=== PATIENT | male | born 1980 | race Caucasian/White ===

== ENCOUNTER 2021-11-01 17:02 | Emergency (ER) | payer MEDICAID, SELFPAY ==
--- NOTE | 2021-11-01 17:26 | ED.HA ---
HPI - Headache General Chief Complaint: Psychiatric Symptoms Stated Complaint: head pain Time Seen by Provider: 11/01/21 17:26 Source: patient Mode of arrival: ambulatory Limitations: no limitations History of Present Illness HPI Narrative: Patient is a 40 year old male presenting to the emergency department today with suicidal ideation. Patient states that he was originally having a headache but he also has thoughts of killing himself. Patient states that he has a history of attempting to hang himself. Patient states that he is hearing voices in his head telling him to hurt himself. Patient denies any dizziness, lightheadedness, abdominal pain, nausea, vomiting, fever, chills, blurry vision, double vision, loss of vision, chest pain, difficulty breathing, shortness of breath, back pain, night sweats, pain with urination, increased urinary frequency, increased urinary urgency, blood in his urine or stool, syncope or a near syncopal episode, recent trauma or falls, bowel incontinence, bladder incontinence, bowel retention, bladder retention, or any other complaints at this time. Patient states that he has a history of IV drug use, using 10-15 bags of heroin per day. Related Data Allergies Allergy/AdvReac Type Severity Reaction Status Date / Time No Known Allergies Allergy Unverified 06/03/20 19:42 [No Known Allergies*] Review of Systems Constitutional: Constitutional: Reports no additional constitutional complaints, Denies chills, Denies fever(s) and Denies night sweats Eyes: Eyes: Reports no additional eye complaints, Denies blurry vision, Denies change in vision, Denies diplopia, Denies eye discharge, Denies loss of vision and Denies eye pain ENT: Denies dizziness Cardiovascular: Cardiovascular: Reports no additional cardiovascular complaints, Denies chest pain, Denies lightheadedness, Denies Loss of Consciousness and Denies dyspnea Respiratory: Respiratory: Reports no additional respiratory complaints and Denies dyspnea Gastrointestinal: Gastrointestinal: Reports no additional gastrointestinal complaints, Denies abdominal pain, Denies melena, Denies hematochezia, Denies change in bowel habits and Denies change in stool character Genitourinary: Genitourinary: Reports no additional male genitourinary complaints, Denies hematuria, Denies oliguria, Denies difficulty urinating, Denies dysuria, Denies urinary frequency, Denies urinary hesitancy, Denies urinary incontinence and Denies urinary urgency Musculoskeletal: Musculoskeletal: Reports no additional musculoskeletal complaints, Denies numbness and Denies tingling Neurologic: Denies dizziness, Denies loss of vision, Denies numbness and Denies tingling Psychiatric: Psychiatric: Reports no additional psychiatric complaints, Reports auditory hallucinations and Reports suicidal ideation Endocrine: Endocrine: Reports no additional endocrine complaints Hematologic/Lymphatic: Hematologic/Lymphatic: Reports no additional hematologic/lymphatic complaints Allergic/Immunologic: Allergic/Immunologic: Reports no additional allergic/immunologic complaints [facility] Past Medical History Attestation statement: The following information was validated with the patient. Source: old records reviewed Social History Social History Advance Directives: No Advance Directives Information Provided: No Physical Exam Vital Signs: Vital Signs: Last Vital Signs Temp 99.4 F 11/01/21 17:31 Pulse 89 11/01/21 17:31 Resp 16 11/01/21 17:31 BP 112/72 11/01/21 17:31 Pulse Ox 99 11/01/21 17:31 BMI result Body Mass Index 26.2 Const: General: cooperative, no acute distress, alert and awake Nutritional Appearance: well nourished Orientation/consciousness: patient oriented x3 Limitations: no limitations HENMT: Head: Yes normal to inspection and Yes atraumatic Ears: hearing grossly normal bilaterally and external ears normal General nose exam: Normal external nose present, no nasal discharge noted and no epistaxis Face and sinus: Yes normal facial exam, No abrasion and No laceration Mouth: Normal oral and palatal mucosa present, no drooling and no muffled voice Eyes: General: appearance normal, both eyes and all related structures Periorbital: periorbital findings normal Eyelids: Yes eyelids normal Conjunctivae: conjunctivae normal Pupils: Equal, round and reactive pupils present EOM: EOMs intact bilaterally Neck: Neck: Yes normal visual inspection, Yes full ROM and Yes no lymphadenopathy Chest: Chest palpation & inspection: normal inspection of the chest Resp: Effort & Inspection: normal respiratory effort and able to speak in complete sentences Auscultation: clear to auscultation bilaterally Cardio: Rate: regular rate Rhythm: regular rhythm GI: Inspection: Yes normal to inspection Neuro: General: patient oriented x3 and moves all extremities Cranial nerves: Yes Equal, round and reactive pupils present Cognition (Neuro): normal cognition Motor exam (neuro): 5/5 motor strength present throughout Sensory Exam: Normal double simultaneous stimulation for sensation Coordination: [id number] test normal Extrem: General: Yes normal to inspection, Yes full ROM and Yes capillary refill normal Psych: Appearance: grossly normal Mental Status: mental status grossly normal Affect: normal affect Attitude: cooperative Thought process: Normal thought process present Thought content: Normal thought content present MDM - Headache MDM Narrative Medical decision making narrative: Patient is a 40 year old male presenting to the emergency department today with suicidal ideation and requesting to be started on methadone or suboxone for opioid use disorder. Patient's physical exam was unremarkable. Patient's blood work was unremarkable. Patient's drug screen was positive for multiple substances including fenatnyl, THC, and opiates. I explained my physical exam findings as well as all test results to the patient. I answered all questions asked by the patient. Patient was evaluated by N who determined that the patient should be discharged in the morning and report to a detox facility himself, in the morning. Patient verbalized agreement and understanding with this treatment plan and discharge. Differential Diagnosis Differential diagnosis: Likely headache (suicidal ideation, opioid use disorder) Medical Records Attestation: I reviewed the patient's medical records. Lab Data Attestation: I reviewed the patient's lab results. Result diagrams: 11/01/21 18:15 11/01/21 18:15 Labs: Lab Results 11/01/21 11/01/21 11/01/21 Range/Units 17:33 18:15 18:15 WBC 7.9 (4.8-10.8) X10*3/uL RBC 4.85 (4.60-5.80) X10*6/uL Hgb 15.3 (14.0-18.0) g/dl Hct 44.8 (42.0-52.0) % MCV 92.4 (80.0-98.0) fL MCH 31.5 (27.0-33.0) pg MCHC 34.2 (31.0-36.0) g/dl RDW 12.9 (11.0-16.0) % Plt Count 270 (160-400) X10*3/uL MPV 9.5 (9.4-12.4) fL Immature Gran % (Auto) 0.1 (0.0-0.4) % Neut % (Auto) 52.8 (45-73) % Lymph % (Auto) 36.5 (20-40) % Alcorn % (Auto) 8.6 (2-11) % Eos % (Auto) 1.5 (0-4) % Baso % (Auto) 0.5 (0-2) % Lymph # (Auto) 2.9 (1.2-4.9) X10*3/uL Alcorn # (Auto) 0.7 (0.1-1.2) X10*3/uL Eos # (Auto) 0.1 (0.0-0.4) X10*3/uL Baso # (Auto) 0.0 (0.0-0.2) X10*3/uL Abs Immat Gran (auto) 0.01 (0.00-0.03) X10*3/uL Absolute Neuts (auto) 4.2 (2.0-8.3) x10*3/uL Absolute Nucleated RBC 0.000 (0.0-0.012) X10*3/uL Nucleated RBC % (auto) 0.0 (0.0-0.2) /100WBC Sodium 140 (135-145) mmol/L Potassium 4.1 (3.3-5.1) mmol/L Chloride 104 (96-108) mmol/L Carbon Dioxide 28 (22-29) mmol/L Anion Gap 12 (12-20) BUN 11 (9-16) mg/dL Creatinine 0.80 (0.5-1.4) mg/dL Estim Creat Clear Calc 115.9 Estimated GFR > 60 Fasting Glucose 118 H (60-99) mg/dL Calcium 8.9 (8.4-10.2) mg/dL Magnesium 2.2 (1.6-2.6) mg/dL Total Bilirubin 0.2 (0.0-1.0) mg/dL AST 22 (5-37) U/L ALT 32 (0-40) U/L Alkaline Phosphatase 76 (39-117) U/L Total Protein 7.0 (6.5-8.0) g/dL Albumin 4.2 (3.5-5.0) g/dL Urine Opiates Screen (Not Detect) Urine Fentanyl Screen (Not Detect) Ur Barbiturates Screen (Not Detect) Ur Phencyclidine Scrn (Not Detect) Ur Amphetamines Screen (Not Detect) U Benzodiazepines Scrn (Not Detect) Urine Cocaine Screen (Not Detect) U Marijuana (THC) Screen (Not Detect) Ethyl Alcohol mg/dL COVID-19 (GARY) Invalid (Negative) COVID-19 Clin Com See Note 11/01/21 11/01/21 11/01/21 Range/Units 18:15 18:30 19:33 WBC (4.8-10.8) X10*3/uL RBC (4.60-5.80) X10*6/uL Hgb (14.0-18.0) g/dl Hct (42.0-52.0) % MCV (80.0-98.0) fL MCH (27.0-33.0) pg MCHC (31.0-36.0) g/dl RDW (11.0-16.0) % Plt Count (160-400) X10*3/uL MPV (9.4-12.4) fL Immature Gran % (Auto) (0.0-0.4) % Neut % (Auto) (45-73) % Lymph % (Auto) (20-40) % Alcorn % (Auto) (2-11) % Eos % (Auto) (0-4) % Baso % (Auto) (0-2) % Lymph # (Auto) (1.2-4.9) X10*3/uL Alcorn # (Auto) (0.1-1.2) X10*3/uL Eos # (Auto) (0.0-0.4) X10*3/uL Baso # (Auto) (0.0-0.2) X10*3/uL Abs Immat Gran (auto) (0.00-0.03) X10*3/uL Absolute Neuts (auto) (2.0-8.3) x10*3/uL Absolute Nucleated RBC (0.0-0.012) X10*3/uL Nucleated RBC % (auto) (0.0-0.2) /100WBC Sodium (135-145) mmol/L Potassium (3.3-5.1) mmol/L Chloride (96-108) mmol/L Carbon Dioxide (22-29) mmol/L Anion Gap (12-20) BUN (9-16) mg/dL Creatinine (0.5-1.4) mg/dL Estim Creat Clear Calc Estimated GFR Fasting Glucose (60-99) mg/dL Calcium (8.4-10.2) mg/dL Magnesium (1.6-2.6) mg/dL Total Bilirubin (0.0-1.0) mg/dL AST (5-37) U/L ALT (0-40) U/L Alkaline Phosphatase (39-117) U/L Total Protein (6.5-8.0) g/dL Albumin (3.5-5.0) g/dL Urine Opiates Screen POSITIVE H (Not Detect) Urine Fentanyl Screen POSITIVE H (Not Detect) Ur Barbiturates Screen Not Detected (Not Detect) Ur Phencyclidine Scrn Not Detected (Not Detect) Ur Amphetamines Screen Not Detected (Not Detect) U Benzodiazepines Scrn Not Detected (Not Detect) Urine Cocaine Screen POSITIVE H (Not Detect) U Marijuana (THC) Screen POSITIVE H (Not Detect) Ethyl Alcohol < 10 mg/dL COVID-19 (GARY) Negative (Negative) COVID-19 Clin Com See Note Discharge Plan Discharge Clinical Impression: Headache, Depression, Opioid abuse Patient Disposition: Home, Self-Care Instructions: Opioid Use Disorder (ED) Additional Instructions: Follow up with your primary care provider. Return to the emergency department immediately if your symptoms worsen or if you develop any dizziness, shortness of breath, difficulty breathing, chest pain, blurry vision, loss of vision, nausea, vomiting, abdominal pain, fever, chills, back pain, or any other complaints. Print Language: Czech
[2021-11-01 17:31] VITALS: BP 112/72; PULSE 89; RESP 16; TEMP 37.4; O2SAT 99; BMI 26.2
[2021-11-01] MEDS: Acetaminophen 325 MG TABLET 650 MG PO (18:14)
[2021-11-01 18:17] LABS: COVID-19 Test Invalid (Negative); IDNOW Serial# 9DD0AD1C
[2021-11-01 18:26] LABS: MANUAL DIFF FLAG NO
[2021-11-01 18:34] LABS: Basophils Percent Auto 0.5 % (0-2); Eosinophils Absolute Auto 0.1 X10*3/uL (0.0-0.4); Eosinophils Percent Auto 1.5 % (0-4); Hematocrit 44.8 % (42.0-52.0); Hemoglobin 15.3 g/dl (14.0-18.0); Imm Gran Abs Auto 0.01 X10*3/uL (0.00-0.03); Imm Gran Pct Auto 0.1 % (0.0-0.4); Lymphocytes Absolute Auto 2.9 X10*3/uL (1.2-4.9); Lymphocytes Percent Auto 36.5 % (20-40); Mean Corpuscular HGB Conc 34.2 g/dl (31.0-36.0); Mean Corpuscular Hemoglobin 31.5 pg (27.0-33.0); Mean Corpuscular Volume 92.4 fL (80.0-98.0); Mean Platelet Volume 9.5 fL (9.4-12.4); Monocytes Absolute Auto 0.7 X10*3/uL (0.1-1.2); Monocytes Percent Auto 8.6 % (2-11); Neutrophils Absolute Auto 4.2 x10*3/uL (2.0-8.3); Neutrophils Percent Auto 52.8 % (45-73); Platelet Count 270 X10*3/uL (160-400); Red Blood Count 4.85 X10*6/uL (4.60-5.80); Red Cell Distribution Width 12.9 % (11.0-16.0); White Blood Count 7.9 X10*3/uL (4.8-10.8)
[2021-11-01 18:42] LABS: Ethanol < 10 mg/dL
[2021-11-01 18:44] LABS: Alanine Aminotransferase 32 U/L (0-40); Albumin Level 4.2 g/dL (3.5-5.0); Alkaline Phosphatase 76 U/L (39-117); Anion Gap 12 (12-20); Aspartate Amino Transferase 22 U/L (5-37); Bilirubin Total 0.2 mg/dL (0.0-1.0); Blood Urea Nitrogen 11 mg/dL (9-16); Calcium 8.9 mg/dL (8.4-10.2); Carbon Dioxide 28 mmol/L (22-29); Chloride 104 mmol/L (96-108); Creatinine Clr Calc Pharmacy 115.9; Estimated Glomerular Filt Rate > 60; Glucose Fasting 118 mg/dL (60-99); Magnesium 2.2 mg/dL (1.6-2.6); Potassium 4.1 mmol/L (3.3-5.1); Sodium 140 mmol/L (135-145)
[2021-11-01 18:51] LABS: COVID-19 Test Negative (Negative)
[2021-11-01 19:54] LABS: Amphetamine Screen Urine Not Detected (Not Detect); Barbiturates, Urine Not Detected (Not Detect); Benzodiazepines Screen Urine Not Detected (Not Detect); Cannabinoid Screen Urine POSITIVE (Not Detect); Cocaine Screen Urine POSITIVE (Not Detect); Fentanyl, urine POSITIVE (Not Detect); Opiate Screen Urine POSITIVE (Not Detect); Phencyclidine Screen Urine Not Detected (Not Detect)
--- NOTE | 2021-11-02 06:00 | PC.NURSE ---
Patient slept through the night, no distress observed/reported, patient assessed by [facility], disposition detox bed search, patient will be picked by [facility] at 0745, will continue to monitor.
[2021-11-02 06:02] VITALS: BP 122/70; PULSE 54; TEMP 36.4; O2SAT 96
== END 2021-11-02 06:57 | disposition home or self-care (01) ==
PROVIDERS: Physician Assistant Medical; Emergency Provider Emergency Medicine
DX: F33.1 Major depressive disorder, recurrent, moderate (principal); R45.851 Suicidal ideations; R51.9 Headache, unspecified; F11.129 Opioid abuse with intoxication, unspecified; Z71.51 Drug abuse counseling and surveillance of drug abuser; Z20.822 Contact with and (suspected) exposure to COVID-19; Z79.899 Other long term (current) drug therapy
CPT/HCPCS: 36415; 80053; 80307; 82077; 83735; 85025; 87635; 99284

== ENCOUNTER 2022-02-17 10:15 | Outpatient (REF) | payer OTHER, SELFPAY ==
[2022-02-17 10:34] LABS: MANUAL DIFF FLAG NO
[2022-02-17 11:20] LABS: Basophils Percent Auto 0.3 % (0-2); Eosinophils Absolute Auto 0.1 X10*3/uL (0.0-0.4); Eosinophils Percent Auto 1.1 % (0-4); Hematocrit 44.4 % (42.0-52.0); Hemoglobin 14.8 g/dl (14.0-18.0); Imm Gran Abs Auto 0.01 X10*3/uL (0.00-0.03); Imm Gran Pct Auto 0.2 % (0.0-0.4); Lymphocytes Absolute Auto 2.1 X10*3/uL (1.2-4.9); Lymphocytes Percent Auto 32.5 % (20-40); Mean Corpuscular HGB Conc 33.3 g/dl (31.0-36.0); Mean Corpuscular Hemoglobin 30.9 pg (27.0-33.0); Mean Corpuscular Volume 92.7 fL (80.0-98.0); Mean Platelet Volume 9.5 fL (9.4-12.4); Monocytes Absolute Auto 0.4 X10*3/uL (0.1-1.2); Monocytes Percent Auto 6.7 % (2-11); Neutrophils Absolute Auto 3.9 x10*3/uL (2.0-8.3); Neutrophils Percent Auto 59.2 % (45-73); Platelet Count 259 X10*3/uL (160-400); Red Blood Count 4.79 X10*6/uL (4.60-5.80); Red Cell Distribution Width 12.9 % (11.0-16.0); White Blood Count 6.5 X10*3/uL (4.8-10.8)
[2022-02-17 11:33] LABS: Estimated Average Glucose 108 mg/dL; Hemoglobin A1c % 5.4 %
[2022-02-17 12:14] LABS: TSH reflex Free T4 1.02 uIU/mL (0.32-4.0)
[2022-02-17 12:18] LABS: HBS Num1 18.26 mIU/mL (0-7.99); HBc Num1 0.12 S/CO (0.00-0.79); HBsAGNum1 0.54 S/CO (0.00-0.99); Hepatitis A Antibody IgM 0.13 Index (0-0.79); Hepatitis B Core Antibody Nonreactive (Nonreactive); Hepatitis B Surface Antigen Negative (Negative); ~Hepatitis A Antibody IgM Nonreactive (Nonreactive); ~Hepatitis B Surface Antibody REACTIVE (Nonreactive); ~Hepatitis C Antibody Nonreactive (Nonreactive)
[2022-02-17 12:21] LABS: Alanine Aminotransferase 21 U/L (0-40); Albumin Level 4.1 g/dL (3.5-5.0); Alkaline Phosphatase 81 U/L (39-117); Anion Gap 11 (12-20); Aspartate Amino Transferase 19 U/L (5-37); Bilirubin Total 0.4 mg/dL (0.0-1.0); Blood Urea Nitrogen 11 mg/dL (9-16); Calcium 9.1 mg/dL (8.4-10.2); Carbon Dioxide 28 mmol/L (22-29); Chloride 102 mmol/L (96-108); Cholesterol 168 mg/dL; Estimated Glomerular Filt Rate > 60; Glucose Fasting 102 mg/dL (60-99); HDL Cholesterol 40 mg/dL; LDL Cholesterol Calculated 109 mg/dl; Potassium 4.3 mmol/L (3.3-5.1); Sodium 137 mmol/L (135-145); Total Protein 6.9 g/dL (6.5-8.0); Triglycerides 96 mg/dL
[2022-02-17 12:29] LABS: Folate 8.7 ng/mL (> or = 4.0); Vitamin B12 294 pg/mL (200-900)
[2022-02-21 14:56] LABS: Vitamin D 25-OH, D2 <4 ng/mL; Vitamin D 25-OH, D3 19 ng/mL; Vitamin D 25-OH, Total 19 ng/mL (30-100)
== END 2022-02-17 10:16 | disposition home or self-care (01) ==
LOC: HO.LAB 10:15
PROVIDERS: PCP Nurse Practitioner Acute Care; Visit Provider Nurse Practitioner Acute Care
DX: Z00.00 Encounter for general adult medical examination without abnormal findings (principal)
CPT/HCPCS: 36415; 80053; 80061; 82306; 82607; 82746; 83036; 84443; 85025; 86704; 86706; 86709; 86803; 87340

== ENCOUNTER 2022-02-25 03:40 | Inpatient (IN) | payer OTHER, SELFPAY ==
[2022-02-25 03:47] VITALS: BP 145/101; PULSE 118; RESP 18; TEMP 36.9; O2SAT 97; BMI 25.7
[2022-02-25 04:20] LABS: COVID-19 Test Negative (Negative); IDNOW Serial# 16C4AD1C
[2022-02-25] MEDS: LORazepam 1 MG TABLET PO (04:26)
--- NOTE | 2022-02-25 05:29 | ED.PSYCH ---
HPI - Psych General Chief Complaint: Psychiatric Symptoms Time Seen by Provider: 02/25/22 04:15 History of Present Illness HPI Narrative: Patient is a 41-year-old male presents today with having homicidal thoughts. Patient denies any coughing congestion upper respiratory symptoms. Had no fever no chills no chest pain or shortness of breath. Has a long history of depression. History of psychiatric disorders. Patient denies any recreational drug use. No specific plan. Related Data Home Medications Medication Instructions Recorded Confirmed fluoxetine 20 mg capsule 1 cap PO QAM 02/25/22 02/25/22 hydroxyzine HCl 50 mg tablet 1 tab PO BID PRN Anxiety 02/25/22 02/25/22 mirtazapine 7.5 mg tablet 1 tab PO BEDTIME 02/25/22 02/25/22 olanzapine 10 mg tablet 1 tab PO BEDTIME 02/25/22 02/25/22 Allergies Allergy/AdvReac Type Severity Reaction Status Date / Time No Known Allergies Allergy Verified 01/17/22 11:39 [No Known Allergies*] Review of Systems Review of Systems: No fever no chills no chest pain or shortness of breath Yes all other systems are reviewed and are negative [facility] Past Medical History Attestation statement: The following information was validated with the patient. Social History Social History Housing: Homeless Patient Tobacco Use Status: Current everyday Tobacco user Tobacco use type: Cigarette e-Cigarette/Vaping Use: Never Used Advance Directives: No Advance Directives Information Provided: No service: No Current occupational status: unemployed Cognitive needs: No Hearing needs: No Vision needs: No Physical Exam Vital Signs: Vital Signs: Last Vital Signs Temp 98.4 F 02/25/22 03:47 Pulse 118 H 02/25/22 03:47 Resp 18 02/25/22 03:47 BP 145/101 H 02/25/22 03:47 Pulse Ox 97 02/25/22 03:47 O2 Del Method 02/25/22 03:47 BMI result Body Mass Index 25.7 Appearance: Alert. Oriented X3. No acute distress. Eyes: Pupils equal, round and reactive to light. ENT: Pharynx normal. Neck: Normal inspection. Neck supple. No lymph nodes noted. No crepitus CVS: Normal heart rate and rhythm. Pulses normal. Normal S1 and S2 Respiratory: No respiratory distress. Breath sounds normal. No Wheezing. No rales Abdomen: Soft and nontender. No rigidity. No distention. good BS x4 Skin: Skin warm and dry. Normal skin color. Normal skin turgor. Extremities: No lower extremity edema. Neurovascular intact to all extremities. No Lacerations. No Rash Neuro: Oriented X 3. No motor deficit. No sensory deficit. Moving all extermities. No slurred speech. Cranial nerves grossly intact MDM - Psych MDM Narrative Medical decision making narrative: Patient no acute distress awaiting crisis evaluation. Currently medically cleared Lab Data Attestation: I reviewed the patient's lab results. Labs: Lab Results 02/25/22 Range/Units 03:59 COVID-19 (GARY) Negative (Negative) COVID-19 Clin Com See Note Discharge Plan Discharge Clinical Impression: Major depressive disorder, recurrent, severe with psychotic features Patient Disposition: Still a Patient Prescriptions: No Action olanzapine 10 mg tablet 1 tab PO BEDTIME hydroxyzine HCl 50 mg tablet 1 tab PO BID PRN (Reason: Anxiety) fluoxetine 20 mg capsule 1 cap PO QAM mirtazapine 7.5 mg tablet 1 tab PO BEDTIME
--- NOTE | 2022-02-25 06:41 | PC.NURSE ---
Patient slept through the night, no distress observed/reported, behavior hyper but calmed down after Ativan 1 mg administered at 0426, N referral completed/confirmed/pending ETA, med rec completed/pending provider's approval, pending urine sample, VSS, will continue to monitor.
--- NOTE | 2022-02-25 08:28 | PC.NURSE ---
PT CURRENTLY BEING EVALUATED BY ROSARIO
[2022-02-25 09:03] LABS: Appearance Urine CLEAR; Color Urine YELLOW; Glucose Urine UA NEG (NEG); Leukocyte Esterase Urine NEG (NEG); Nitrite Urine NEG (NEG); Specific Gravity - Urine 1.025 (1.005-1.025); Urine Blood NEG (NEG); Urine Ketones 5 MG/DL (NEG); Urine Protein 1+ MG/DL (NEG-TRACE)
[2022-02-25 09:32] LABS: Mucus Urine 4+ /LPF
[2022-02-25 10:00] VITALS: BP 108/56; PULSE 69; TEMP 37.1; O2SAT 97
--- NOTE | 2022-02-25 11:29 | PC.NURSE ---
PT HAS BEEN SEEN BY [facility] PT IS A BED SEARCH, HAS BEEN CALM THIS SHIFT AND IS SLEEPING AT THIS TIME
[2022-02-25 11:47] LABS: Amphetamine Screen Urine Not Detected (Not Detect); Barbiturates, Urine Not Detected (Not Detect); Benzodiazepines Screen Urine Not Detected (Not Detect); Cannabinoid Screen Urine POSITIVE (Not Detect); Cocaine Screen Urine POSITIVE (Not Detect); Fentanyl, urine POSITIVE (Not Detect); Opiate Screen Urine POSITIVE (Not Detect); Phencyclidine Screen Urine Not Detected (Not Detect)
[2022-02-25 15:38] VITALS: PULSE 78
[2022-02-25 15:51] VITALS: BP 129/91; PULSE 79; TEMP 36.9; O2SAT 98
--- NOTE | 2022-02-25 16:01 | PC.NURSE ---
Patient was observed by this nurse to be in mild withdrawal from opiates. Jaime notified and provider notified that COWS score was 6 at the time. provider ordered clonidine to help with symptoms patient refused stated it was methadone or nothing.
--- NOTE | 2022-02-25 16:19 | PC.NURSE ---
Patient spoke to this nurse and sierra regarding methadone verification and dosing. patient stated he did not want meds to help with detox and that if he could have his normal dose he did not want this verified tomorrow that he was just going to stay off methadone. This converstation and comment was witness by boo grier interpretor and sierra. provider was notified
--- NOTE | 2022-02-25 16:30 | MHC.RECOVSUP ---
Recovery Support note: Patient is a 41 year old Nigerien speaking male who presented to [facility] due to HI and is currently awaiting an inpatient psychiatric bed. This policy writer sales met with patient with [facility] hydrogen power plant engineer to discuss methadone dosing. Patient reports he last dosed yesterday at the [facility] and that he gets 65mg. Patient educated on policy regarding methadone verification and the inability to confirm with his clinic after hours. This policy writer sales offered to advocate for a smaller dose of methadone than he typically takes to help treat his withdrawal symptoms. Patient initially declined, stating he will just detox off of the methadone. Patient reported that he was on methadone to get off drugs but that he prefers the drugs and just takes methadone so he doesn't feel sick while in treatment facilities. Discussed with patient that we could taper him off of the methadone. Patient changed his mind and reported he would take whatever we can give him. Plan for patient to get 30mg of methadone today and for his dose to be verified tomorrow. Discussed case with RN and ED provider.
[2022-02-25] MEDS: methADONE HCl 20 MG/2 ML ORAL.CONC 30 MG PO (18:56)
[2022-02-25] MEDS: Mirtazapine 7.5 MG TABLET PO (20:52)
[2022-02-25] MEDS: OLANZapine 10 MG TABLET PO (20:52)
[2022-02-26] MEDS: Omeprazole 20 MG CAPSULE.DR PO (05:41)
--- NOTE | 2022-02-26 08:32 | PC.NURSE ---
assistance with Mathadone dose requested from Jaime (peer recovery), dose verification obtained, pending pts desire to continue methadone
[2022-02-26 09:51] VITALS: BP 142/85; PULSE 57; RESP 16; TEMP 37.1; O2SAT 97
[2022-02-26] MEDS: methADONE HCl 20 MG/2 ML ORAL.CONC 60 MG PO (10:01)
[2022-02-26] MEDS: Cholecalciferol (Vitamin D3) 25 MCG TABLET 50 MCG PO (10:01)
[2022-02-26] MEDS: FLUoxetine HCl 20 MG CAPSULE PO (10:01)
[2022-02-26 15:54] VITALS: BP 138/92; PULSE 65; RESP 16; TEMP 36.7; O2SAT 98
[2022-02-26] MEDS: OLANZapine 10 MG TABLET PO (20:01)
[2022-02-26] MEDS: Mirtazapine 7.5 MG TABLET PO (20:01)
--- NOTE | 2022-02-26 23:48 | PC.NURSE ---
Patient in bed appears sleeping, respiration +/=/non-labored bilaterally, no distress observed/reported at this time, medication compliant, behavior non concerning, contracted for the safety, VSS, disposition per [facility] is section 12 Inpatient Bed Search, no update on bed search,
--- NOTE | 2022-02-27 | ECG_ITS ---
Test Reason : MED CLEARANCE Blood Pressure : / mmHG Vent. Rate : 054 BPM Atrial Rate : 054 BPM P-R Int : 124 ms QRS Dur : 076 ms QT Int : 456 ms P-R-T Axes : 048 042 -06 degrees QTc Int : 432 ms Sinus bradycardia Otherwise normal ECG No previous ECGs available Referred By: Cassidy Roa Electronically Signed By:Jason Myers
[2022-02-27] MEDS: Omeprazole 20 MG CAPSULE.DR PO (06:19)
[2022-02-27 06:31] VITALS: BP 128/61; PULSE 61; RESP 17; TEMP 36.8; O2SAT 97
--- NOTE | 2022-02-27 07:13 | PC.NURSE ---
patient appears to remain asleep at present respirations are even and unlabored patient appears in no distress
[2022-02-27] MEDS: methADONE HCl 20 MG/2 ML ORAL.CONC 60 MG PO (10:50)
[2022-02-27] MEDS: Cholecalciferol (Vitamin D3) 25 MCG TABLET 50 MCG PO (10:50)
[2022-02-27] MEDS: FLUoxetine HCl 20 MG CAPSULE PO (10:52)
[2022-02-27 15:21] LABS: MANUAL DIFF FLAG NO
--- NOTE | 2022-02-27 15:25 | PC.NURSE ---
EKG performed by [facility], provider notified.
[2022-02-27 15:28] LABS: Basophils Percent Auto 0.4 % (0-2); Eosinophils Absolute Auto 0.1 X10*3/uL (0.0-0.4); Eosinophils Percent Auto 1.3 % (0-4); Hematocrit 44.5 % (42.0-52.0); Imm Gran Abs Auto 0.02 X10*3/uL (0.00-0.03); Imm Gran Pct Auto 0.3 % (0.0-0.4); Lymphocytes Absolute Auto 2.4 X10*3/uL (1.2-4.9); Lymphocytes Percent Auto 35.3 % (20-40); Mean Corpuscular HGB Conc 33.7 g/dl (31.0-36.0); Mean Corpuscular Hemoglobin 31.1 pg (27.0-33.0); Mean Corpuscular Volume 92.1 fL (80.0-98.0); Mean Platelet Volume 9.1 fL (9.4-12.4); Monocytes Absolute Auto 0.5 X10*3/uL (0.1-1.2); Monocytes Percent Auto 7.3 % (2-11); Neutrophils Absolute Auto 3.8 x10*3/uL (2.0-8.3); Neutrophils Percent Auto 55.4 % (45-73); Platelet Count 264 X10*3/uL (160-400); Red Blood Count 4.83 X10*6/uL (4.60-5.80); Red Cell Distribution Width 12.7 % (11.0-16.0); White Blood Count 6.8 X10*3/uL (4.8-10.8)
[2022-02-27 15:37] LABS: Alanine Aminotransferase 19 U/L (0-40); Albumin Level 4.1 g/dL (3.5-5.0); Alkaline Phosphatase 78 U/L (39-117); Anion Gap 11 (12-20); Aspartate Amino Transferase 19 U/L (5-37); Bilirubin Total 0.5 mg/dL (0.0-1.0); Blood Urea Nitrogen 14 mg/dL (9-16); Calcium 9.1 mg/dL (8.4-10.2); Carbon Dioxide 31 mmol/L (22-29); Chloride 101 mmol/L (96-108); Estimated Glomerular Filt Rate > 60; Glucose Fasting 113 mg/dL (60-99); Potassium 4.6 mmol/L (3.3-5.1); Sodium 138 mmol/L (135-145); Total Protein 6.7 g/dL (6.5-8.0)
[2022-02-27 15:44] LABS: COVID-19 Test Negative (Negative); IDNOW Serial# 55D5AD1C
--- NOTE | 2022-02-27 16:48 | PC.NURSE ---
RN from [facility] came down to bring pt upstairs.
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
--- NOTE | 2022-02-27 18:33 | PC.ADMIT ---
Pt is a 41 year male who presents to from [facility] ED on a cv status at approx 16:00. Pt is covid - Tox screen + for fentanyl, opiates, cocaine, and THC. Per chart review, pt presented to [facility] ED secondary to endorsing HI towards an unkown person. When pt was asked the reasons for his presentation, pt denied HI and stated he has no memory of what he said upon admission. Pt reported endorsing SI with no plan, experiencing increased depression, hopelessness, and agitation. Pt endorses AH of voices telling him that nobody cares. Pt recalls the reasons for his poly substances use in because he does not want to hear the voices when he is severely inebriated. Pt was pleasant during his admit, pt reported AH, VH but did not elaborate on what they were. Pt ate his meals and talked with his provider and interrupter services. Pt is a Bahraini speaking male primarily. Provider called and notified to put in admission orders. Start treatment plan and monitor for safety.
[2022-02-27] MEDS: Mirtazapine 7.5 MG TABLET PO (22:09)
[2022-02-27] MEDS: OLANZapine 10 MG TABLET PO (22:09)
[2022-02-28] MEDS: FLUoxetine HCl 20 MG CAPSULE PO (09:08)
[2022-02-28] MEDS: methADONE HCl 20 MG/2 ML ORAL.CONC 65 MG PO (09:08)
[2022-02-28] MEDS: Omeprazole 20 MG CAPSULE.DR PO (09:08)
[2022-02-28] MEDS: Cholecalciferol (Vitamin D3) 25 MCG TABLET 50 MCG PO (09:08)
[2022-02-28 09:31] LABS: Alanine Aminotransferase 22 U/L (0-40); Albumin Level 4.4 g/dL (3.5-5.0); Alkaline Phosphatase 86 U/L (39-117); Anion Gap 12 (12-20); Aspartate Amino Transferase 20 U/L (5-37); Bilirubin Total 0.2 mg/dL (0.0-1.0); Blood Urea Nitrogen 17 mg/dL (9-16); Calcium 9.3 mg/dL (8.4-10.2); Carbon Dioxide 31 mmol/L (22-29); Chloride 100 mmol/L (96-108); Cholesterol 169 mg/dL; Creatinine Clr Calc Pharmacy 91.8; Estimated Glomerular Filt Rate > 60; Glucose Fasting 101 mg/dL (60-99); HDL Cholesterol 38 mg/dL; LDL Cholesterol Calculated 112 mg/dl; Potassium 4.6 mmol/L (3.3-5.1); Sodium 138 mmol/L (135-145); Total Protein 7.4 g/dL (6.5-8.0); Triglycerides 99 mg/dL
--- NOTE | 2022-02-28 16:23 | HO.PSYCHPN ---
Subjective Subjective Date of Service: 02/28/22 Reason For Visit: crisis Interim History: Reviewed history with patient he says he is a long history of auditory hallucinations which does say that nobody cares and to take his life. Patient has a history of depression. Patient also says he has chronic suicidal thoughts daily but is mostly able to keep himself from self-harm because of his children which are strong protective factor. Patient denies any active SI. Regarding HI, he says he has no specific person he is felt angry towards and has no plans or intention of hurting anybody. Patient says he takes his medications when I remember. Patient is not sure what worsened recently but he says he had a crisis. He agrees that because he has not consistently taking current dose of medications that he should remain on current regimen to see if consistently taking Zyprexa could help resolve the auditory hallucinations. Patient agrees that he would strongly benefit from a residential addiction treatment program and would like to pursue this Mental Status Exam Mental Status Exam Narrative: Pt is alert and oriented; behavior is cooperative, calm; patient is not in distress; dressed in casual attire with adequate hygiene; mood is described as depressed and affect anxious; eye contact appropriate; Speech is normal rate, volume and prosody and not pressured; no psychomotor agitation/retardation present; thought process is organized and goal directed; Thought content is on tx;, dealing with AH; otherwise pertinent to relevant topics and without any delusional content, paranoid ideations or grandiosity; pt has chronic passive SI but denies any active SI, intent or plans; Denies HI; endorses AH; Patients insight and judgment are impaired but improved. Diagnostics Vital Signs (24Hr): BMI result Body Mass Index 25.7 Labs Results: 02/27/22 15:11 02/28/22 08:22 Labs: Laboratory Results - last 48 hr 02/27/22 02/27/22 02/27/22 15:11 15:11 15:11 WBC 6.8 RBC 4.83 Hgb 15.0 Hct 44.5 MCV 92.1 MCH 31.1 MCHC 33.7 RDW 12.7 Plt Count 264 MPV 9.1 L Immature Gran % (Auto) 0.3 Neut % (Auto) 55.4 Lymph % (Auto) 35.3 [place] % (Auto) 7.3 Eos % (Auto) 1.3 Baso % (Auto) 0.4 Lymph # (Auto) 2.4 [place] # (Auto) 0.5 Eos # (Auto) 0.1 Baso # (Auto) 0.0 Abs Immat Gran (auto) 0.02 Absolute Neuts (auto) 3.8 Absolute Nucleated RBC 0.000 Nucleated RBC % (auto) 0.0 Sodium 138 Potassium 4.6 Chloride 101 Carbon Dioxide 31 H Anion Gap 11 L BUN 14 Creatinine 0.88 Estim Creat Clear Calc 97.0 Estimated GFR > 60 Fasting Glucose 113 H Calcium 9.1 Total Bilirubin 0.5 AST 19 ALT 19 Alkaline Phosphatase 78 Total Protein 6.7 Albumin 4.1 Triglycerides Cholesterol LDL Cholesterol, Calc HDL Cholesterol COVID-19 (GARY) Negative COVID-19 Clin Com See Note 02/28/22 08:22 WBC RBC Hgb Hct MCV MCH MCHC RDW Plt Count MPV Immature Gran % (Auto) Neut % (Auto) Lymph % (Auto) [place] % (Auto) Eos % (Auto) Baso % (Auto) Lymph # (Auto) [place] # (Auto) Eos # (Auto) Baso # (Auto) Abs Immat Gran (auto) Absolute Neuts (auto) Absolute Nucleated RBC Nucleated RBC % (auto) Sodium 138 Potassium 4.6 Chloride 100 Carbon Dioxide 31 H Anion Gap 12 BUN 17 H Creatinine 0.93 Estim Creat Clear Calc 91.8 Estimated GFR > 60 Fasting Glucose 101 H Calcium 9.3 Total Bilirubin 0.2 AST 20 ALT 22 Alkaline Phosphatase 86 Total Protein 7.4 Albumin 4.4 Triglycerides 99 Cholesterol 169 LDL Cholesterol, Calc 112 HDL Cholesterol 38 COVID-19 (GARY) COVID-19 Clin Com Medications Medications Current Medications Acetaminophen (Acetaminophen 325 Mg Tablet) 650 mg PO Q6H PRN PRN Reason: Headache/Pain Mild Scale (1-3) Al Hydroxide/Mg Hydroxide (Magnesium Hydrox/Alum Hydrox 30 Ml Oral.Susp) 30 ml PO Q6H PRN PRN Reason: Heartburn/Nausea Clonidine HCl (Clonidine Hcl 0.1 Mg Tablet) 0.05 mg PO BID PRN; Protocol PRN Reason: hyperarousal Fluoxetine HCl (Fluoxetine Hcl 20 Mg Capsule) 20 mg PO DAILY [facility] Last Admin: 02/28/22 09:08 Dose: 20 mg Guaifenesin/Dextromethorphan (Guaifenesin Dm 600/30 1 Tab Tab.Er.12h) 2 tab PO BID PRN PRN Reason: congestion Hydroxyzine HCl (Hydroxyzine Hcl 50 Mg Tablet) 50 mg PO Q6H PRN PRN Reason: Anxiety Magnesium Hydroxide (Milk Of Magnesia 30 Ml Oral.Susp) 30 ml PO DAILY PRN PRN Reason: Constipation Methadone HCl (Methadone Hcl 20 Mg/2 Ml Oral.Conc) 65 mg PO DAILY [facility] Last Admin: 02/28/22 09:08 Dose: 65 mg Mirtazapine (Mirtazapine 7.5 Mg Tablet) 7.5 mg PO BEDTIME [facility] Last Admin: 02/27/22 22:09 Dose: 7.5 mg Olanzapine (Olanzapine 10 Mg Tablet) 10 mg PO BEDTIME [facility] Last Admin: 02/27/22 22:09 Dose: 10 mg Omeprazole (Omeprazole 20 Mg Capsule.Dr) 20 mg PO DAILY@629 [facility] Last Admin: 02/28/22 09:08 Dose: 20 mg Polyethylene Glycol (Polyethylene Glycol 3350 17 Gm Powd.Pack) 17 gm PO BID [facility] Last Admin: 02/28/22 14:24 Dose: Not Given Quetiapine Fumarate (Quetiapine Fumarate 50 Mg Tablet) 50 mg PO Q6H PRN PRN Reason: agitation, anxiety Trazodone HCl (Trazodone Hcl 50 Mg Tablet) 50 mg PO BEDTIME PRN PRN Reason: Insomnia Vitamin D (Cholecalciferol (Vitamin D3) 25 Mcg Tablet) 50 mcg PO DAILY [facility] Last Admin: 02/28/22 09:08 Dose: 50 mcg Allergies Allergies Allergy/AdvReac Type Severity Reaction Status Date / Time No Known Allergies Allergy Verified 01/17/22 11:39 [No Known Allergies*] Assessment & Plan Assessment & Plan (1) Major depressive disorder, recurrent, severe with psychotic features: Status: Acute Code(s): F33.3 - Major depressive disorder, recurrent, severe with psychotic symptoms (2) Opioid use disorder, moderate, dependence: Status: Acute Code(s): F11.20 - Opioid dependence, uncomplicated (3) Cocaine use disorder: Status: Acute Code(s): F14.10 - Cocaine abuse, uncomplicated Plan Cong is a 41 y.o. male who carries a dx of MDD with psychotic features, opioid use disorder, and cocaine use disorder. He presented to [facility] ED on 02/25/22 due to HI towards an unknown person, SI, and increased depression. Utox was positive for opiate, fentanyl, cocaine, and cannabis. He reports using methadone 65 mg that he obtains from the street. Per crisis eval, pt endorsed command AH, voices tell him everyday that nobody cares. Says he uses illicit substances to try to drown out the voices. No alcohol abuse. He was administered methadone 60 mg in the ED setting. Pt reports past benefit on seroquel for sx of anxiety, insomnia, will start 50 mg Q6H PRN. Will order addiction consult, as pt would like to increase his methadone dose. Will increase to 65 mg for tomorrow AM and evaluate for benefit. Reviewed EKG, no prolonged QTc. 02/28 patient remains depressed; he has chronic SI but children are strong protective factor and he denies any active thoughts, intention or plans. He continues to have problematic auditory hallucinations. However he says he only takes his medications when he remembers and therefore it remains very possible that current dose could be effective if taken consistently. Patient carries a diagnosis of MDD with psychotic features. He says he has had auditory hallucinations since he was a child; will try to rule out schizoaffective disorder. Patient agrees that substance abuse, while taken to ameliorate problematic auditory hallucinations, remains an obstacle to treatment and he like a treatment program post discharge PLAN: Q15 min safety checks, CV started on seroquel 50 mg Q6H PRN, anxiety Methadone was increase to 65 mg Addiction consult for Methadone continue olanzapine 10mg qhs (home med) continue fluoxetine 20mg (home med) continue mirtazapine 7.5mg (home med) SW pursuing CSS/substance abuse tx Monitor response to medications. Monitor for safety in the milieu. Discharge on stabilization. Patient seen. Chart reviewed. Discussed with team. Obtain collateral contact info?as needed I spent minutes with the patient and/or on the patient floor today, greater than?50% of which was spent counseling/coordinating care. Patient educated on: diagnosis, medication risk/benefits, substance abuse and therapeutic strategies Informed Consent: understands Reason for contiued inpatient stay Substantial Risk for: rapid decompensation
[2022-02-28 17:40] VITALS: BP 104/68; PULSE 79; TEMP 36.1; O2SAT 96
[2022-02-28] MEDS: OLANZapine 10 MG TABLET PO (20:42)
[2022-02-28] MEDS: Mirtazapine 7.5 MG TABLET PO (20:42)
[2022-02-28] MEDS: polyethylene glycoL 3350 17 GM POWD.PACK PO (20:43)
[2022-03-01] MEDS: Omeprazole 20 MG CAPSULE.DR PO (06:10)
[2022-03-01 07:30] VITALS: BP 108/66; PULSE 66; RESP 16; TEMP 36.8; O2SAT 97
[2022-03-01] MEDS: FLUoxetine HCl 20 MG CAPSULE PO (09:14)
[2022-03-01] MEDS: methADONE HCl 20 MG/2 ML ORAL.CONC 65 MG PO (09:14)
[2022-03-01] MEDS: Cholecalciferol (Vitamin D3) 25 MCG TABLET 50 MCG PO (09:14)
--- NOTE | 2022-03-01 16:19 | HO.ADDICTCON ---
History of Present Illness Date of Service: 03/01/2022 Chief Complaint: crisis Reason for Consult: methadone dose titration Requesting physician: Selma Rebolledo Sources of Information: patient interviewed and chart reviewed HPI Narrative: Patient is a 41 year old Vietnamese speaking male currently admitted to unit for AH and worsening depression. Consult requested as patient is currently prescribed methadone 65mg QD and requesting increase due to continued use. patient seen on M5. Awake, alert, laying in bed and participating in interview. Patient reports he has been on 65mg for some time, but has recently increased heroin use. Unclear how long he has been in treatment for OUD this time, but reports that he has been on methadone in the past when living in [place] with dose up to 90mg daily. Reporting mild withdrawal sx, but increase request to address cravings and continued use. Past Psychiatric History: -Hx of OP treatment at [facility] -Hx of suicide attempt in 2019 via attempted hanging. -Hx of IPLOC, last had two admissions in 2019 at [place] and one admission at [facility]. -Hx of multiple crisis evals for depression, anxiety, and SI/HI without plan or intent in context of polysubstance abuse. -Past meds: Klonopin, seroquel (says both were helpful) Review of Systems Review of Systems Yes all other systems are reviewed and are negative Diagnostics Vital Signs (24Hr): Vital Signs - 24 hr 02/28/22 17:40 03/01/22 08:30 Temperature 96.9 F 97.7 F Pulse Rate 79 71 Blood Pressure 104/68 121/74 Pulse Oximetry 96 Oxygen Delivery Method Room Air BMI result Body Mass Index 25.7 Labs Results: 02/27/22 15:11 02/28/22 08:22 Labs: Laboratory Results - last 48 hr 02/28/22 08:22 Sodium 138 Potassium 4.6 Chloride 100 Carbon Dioxide 31 H Anion Gap 12 BUN 17 H Creatinine 0.93 Estim Creat Clear Calc 91.8 Estimated GFR > 60 Fasting Glucose 101 H Calcium 9.3 Total Bilirubin 0.2 AST 20 ALT 22 Alkaline Phosphatase 86 Total Protein 7.4 Albumin 4.4 Triglycerides 99 Cholesterol 169 LDL Cholesterol, Calc 112 HDL Cholesterol 38 Mental Status Exam Mental Status Exam Level of Consciousness: Awake and Appropriate Mood Description: Flat Affect Description: Flat Medications Medications Current Medications Acetaminophen (Acetaminophen 325 Mg Tablet) 650 mg PO Q6H PRN PRN Reason: Headache/Pain Mild Scale (1-3) Al Hydroxide/Mg Hydroxide (Magnesium Hydrox/Alum Hydrox 30 Ml Oral.Susp) 30 ml PO Q6H PRN PRN Reason: Heartburn/Nausea Clonidine HCl (Clonidine Hcl 0.1 Mg Tablet) 0.05 mg PO BID PRN; Protocol PRN Reason: hyperarousal Fluoxetine HCl (Fluoxetine Hcl 20 Mg Capsule) 20 mg PO DAILY [facility] Last Admin: 03/01/22 09:14 Dose: 20 mg Guaifenesin/Dextromethorphan (Guaifenesin Dm 600/30 1 Tab Tab.Er.12h) 2 tab PO BID PRN PRN Reason: congestion Hydroxyzine HCl (Hydroxyzine Hcl 50 Mg Tablet) 50 mg PO Q6H PRN PRN Reason: Anxiety Magnesium Hydroxide (Milk Of Magnesia 30 Ml Oral.Susp) 30 ml PO DAILY PRN PRN Reason: Constipation Methadone HCl (Methadone Hcl 20 Mg/2 Ml Oral.Conc) 65 mg PO DAILY [facility] Last Admin: 03/01/22 09:14 Dose: 65 mg Mirtazapine (Mirtazapine 7.5 Mg Tablet) 7.5 mg PO BEDTIME [facility] Last Admin: 02/28/22 20:42 Dose: 7.5 mg Nicotine (Nicotine 21 Mg Patch.Td24) 21 mg TRANSDERMA DAILY PRN PRN Reason: smoking cessation Olanzapine (Olanzapine 10 Mg Tablet) 10 mg PO BEDTIME [facility] Last Admin: 02/28/22 20:42 Dose: 10 mg Omeprazole (Omeprazole 20 Mg Capsule.Dr) 20 mg PO DAILY@0630 [facility] Last Admin: 03/01/22 06:10 Dose: 20 mg Polyethylene Glycol (Polyethylene Glycol 3350 17 Gm Powd.Pack) 17 gm PO BID [facility] Last Admin: 03/01/22 09:21 Dose: Not Given Quetiapine Fumarate (Quetiapine Fumarate 50 Mg Tablet) 50 mg PO Q6H PRN PRN Reason: agitation, anxiety Trazodone HCl (Trazodone Hcl 50 Mg Tablet) 50 mg PO BEDTIME PRN PRN Reason: Insomnia Vitamin D (Cholecalciferol (Vitamin D3) 25 Mcg Tablet) 50 mcg PO DAILY [facility] Last Admin: 03/01/22 09:14 Dose: 50 mcg Allergies Allergies Allergy/AdvReac Type Severity Reaction Status Date / Time No Known Allergies Allergy Verified 01/17/22 11:39 [No Known Allergies*] Assessment & Plan Assessment & Plan (1) Opioid use disorder, moderate, dependence: Status: Acute Code(s): F11.20 - Opioid dependence, uncomplicated Assessment and Plan: methadone increase to 70mg daily starting 03/01/2022 additional increases to occur at [facility] I spent ___30___ minutes with the patient and/or on the patient floor today, greater than?50% of which was spent counseling/coordinating care. [facility] Social History Social History Household Members: None Housing: Homeless Do you presently have visiting nurse or other home services: No Patient Tobacco Use Status: Current everyday Tobacco user Tobacco use type: Cigarette Cigarette Packs Per Day: 1 Cigarettes Per Day: 20.0 Years Smoked: 10+ Smoked in Last 30 Days: Yes e-Cigarette/Vaping Use: Never Used Patient Interested in Nicotine Replacement: Yes Patient Given Instructions on How to Stop Smoking: Yes Date Education Initiated: 02/27/22 Second Hand Smoke Exposure: Yes Substance Use Type: Marijuana Substance Use Frequency: Socially Currently Displaying Signs/Symptoms of Drug Intoxication Withdrawal: No Any prior treatment program specific to substance use: No Have you been hit, kicked, punched, or otherwise hurt by someone within the past year? If so, by whom?: No Do you feel safe in your current relationship?: No Current Relationship Is there a partner from a previous relationship who is making you feel unsafe now?: No Are you made to feel afraid or neglected: No Advance Directives: No Advance Directives Information Provided: No Do you have thoughts of harming others: None Do you have a plan to hurt others: No Plan Recently lost weight without trying: No How much weight loss: Not applicable Eating poorly because of decreased appetite: No Nutrition screen score: 0 Nutrition Risks: No Nutritional Risk Poor oral hygiene: No service: No Current occupational status: unemployed Sexual orientation: Did not discuss Cognitive needs: No Hearing needs: No Vision needs: No
--- NOTE | 2022-03-01 17:34 | P.PNPSI_ITS ---
Subjective Subjective Date of Service: 03/01/22 Reason For Visit: crisis Interim History: Seen with this Salvadorean speaker Mood is so-so and still depressed. Has not been going to groups. Says AH remains but it is lower than on admission. Agrees to increasing mirtazapine. Continues to be startled out of sleep throughout the night. Wants to attend [facility] Mental Status Exam Mental Status Exam Narrative: Pt is alert and oriented; behavior is cooperative, calm; patient is not in distress; dressed in casual attire with adequate hygiene; mood is described as so-so and affect anxious; eye contact appropriate; Speech is normal rate, volume and prosody and not pressured; no psychomotor agitation/retardation present; thought process is organized and goal directed; Thought content is on tx;, dealing with AH; otherwise pertinent to relevant topics and without any delusional content, paranoid ideations or grandiosity; pt has chronic passive SI but denies any active SI, intent or plans; Denies HI; endorses AH; Patients insight and judgment are impaired but improved. Diagnostics Vital Signs (24Hr): Vital Signs - 24 hr 02/28/22 17:40 03/01/22 08:30 Temperature 96.9 F 97.7 F Pulse Rate 79 71 Blood Pressure 104/68 121/74 Pulse Oximetry 96 Oxygen Delivery Method Room Air BMI result Body Mass Index 25.7 Labs Results: 02/27/22 15:11 02/28/22 08:22 Labs: Laboratory Results - last 48 hr 02/28/22 08:22 Sodium 138 Potassium 4.6 Chloride 100 Carbon Dioxide 31 H Anion Gap 12 BUN 17 H Creatinine 0.93 Estim Creat Clear Calc 91.8 Estimated GFR > 60 Fasting Glucose 101 H Calcium 9.3 Total Bilirubin 0.2 AST 20 ALT 22 Alkaline Phosphatase 86 Total Protein 7.4 Albumin 4.4 Triglycerides 99 Cholesterol 169 LDL Cholesterol, Calc 112 HDL Cholesterol 38 Medications Medications Current Medications Acetaminophen (Acetaminophen 325 Mg Tablet) 650 mg PO Q6H PRN PRN Reason: Headache/Pain Mild Scale (1-3) Al Hydroxide/Mg Hydroxide (Magnesium Hydrox/Alum Hydrox 30 Ml Oral.Susp) 30 ml PO Q6H PRN PRN Reason: Heartburn/Nausea Clonidine HCl (Clonidine Hcl 0.1 Mg Tablet) 0.05 mg PO BID PRN; Protocol PRN Reason: hyperarousal Fluoxetine HCl (Fluoxetine Hcl 20 Mg Capsule) 20 mg PO DAILY [facility] Last Admin: 03/01/22 09:14 Dose: 20 mg Guaifenesin/Dextromethorphan (Guaifenesin Dm 600/30 1 Tab Tab.Er.12h) 2 tab PO BID PRN PRN Reason: congestion Hydroxyzine HCl (Hydroxyzine Hcl 50 Mg Tablet) 50 mg PO Q6H PRN PRN Reason: Anxiety Magnesium Hydroxide (Milk Of Magnesia 30 Ml Oral.Susp) 30 ml PO DAILY PRN PRN Reason: Constipation Methadone HCl (Methadone Hcl 20 Mg/2 Ml Oral.Conc) 70 mg PO DAILY [facility] Mirtazapine (Mirtazapine 7.5 Mg Tablet) 7.5 mg PO BEDTIME [facility] Last Admin: 02/28/22 20:42 Dose: 7.5 mg Nicotine (Nicotine 21 Mg Patch.Td24) 21 mg TRANSDERMA DAILY PRN PRN Reason: smoking cessation Olanzapine (Olanzapine 10 Mg Tablet) 10 mg PO BEDTIME [facility] Last Admin: 02/28/22 20:42 Dose: 10 mg Omeprazole (Omeprazole 20 Mg Capsule.Dr) 20 mg PO DAILY@0630 [facility] Last Admin: 03/01/22 06:10 Dose: 20 mg Polyethylene Glycol (Polyethylene Glycol 3350 17 Gm Powd.Pack) 17 gm PO BID [facility] Last Admin: 03/01/22 09:21 Dose: Not Given Quetiapine Fumarate (Quetiapine Fumarate 50 Mg Tablet) 50 mg PO Q6H PRN PRN Reason: agitation, anxiety Trazodone HCl (Trazodone Hcl 50 Mg Tablet) 50 mg PO BEDTIME PRN PRN Reason: Insomnia Vitamin D (Cholecalciferol (Vitamin D3) 25 Mcg Tablet) 50 mcg PO DAILY [facility] Last Admin: 03/01/22 09:14 Dose: 50 mcg Allergies Allergies Allergy/AdvReac Type Severity Reaction Status Date / Time No Known Allergies Allergy Verified 01/17/22 11:39 [No Known Allergies*] Assessment & Plan Assessment & Plan (1) Opioid use disorder, moderate, dependence: Status: Acute Code(s): F11.20 - Opioid dependence, uncomplicated Assessment and Plan: * methadone increase to 70mg daily starting 03/01/2022 * additional increases to occur at OTP Destiney Gar is a 41 y.o. male who carries a dx of MDD with psychotic features, opioid use disorder, and cocaine use disorder. He presented to [facility] ED on 02/25/22 due to HI towards an unknown person, SI, and increased depression. Utox was positive for opiate, fentanyl, cocaine, and cannabis. He reports using methadone 65 mg that he obtains from the street. Per crisis eval, pt endorsed command AH, voices tell him everyday that nobody cares. Says he uses illicit substances to try to drown out the voices. No alcohol abuse. He was administered methadone 60 mg in the ED setting. Pt reports past benefit on seroquel for sx of anxiety, insomnia, will start 50 mg Q6H PRN. Will order addiction consult, as pt would like to increase his methadone dose. Will increase to 65 mg for tomorrow AM and evaluate for benefit. Reviewed EKG, no prolonged QTc. 02/28 patient remains depressed; he has chronic SI but children are strong protective factor and he denies any active thoughts, intention or plans.? He continues to have problematic auditory hallucinations.? However he says he only takes his medications when he remembers and therefore it remains very possible that current dose could be effective if taken consistently.? Patient carries a diagnosis of MDD with psychotic features.? He says he has had auditory hallucinations since he was a child; will try to rule out schizoaffective disorder.? Patient agrees that substance abuse, while taken to ameliorate problematic auditory hallucinations, remains an obstacle to treatment and he like a treatment program post discharge 03/01 not as depressed, still has AH but this is a little better; will increase mirtazapine for depression PLAN: Q15 min safety checks, CV started on seroquel? 50 mg Q6H PRN, anxiety Methadone was increase to 65 mg Addiction consult for Methadone continue olanzapine 10mg qhs (home med) continue fluoxetine 20mg (home med) continue mirtazapine 7.5mg (home med) SW pursuing CSS/substance abuse tx Monitor response to medications. Monitor for safety in the milieu. Discharge on stabilization. Patient seen. Chart reviewed. Discussed with team. Obtain collateral contact info?as needed I spent minutes with the patient and/or on the patient floor today, greater than?50% of which was spent counseling/coordinating care. Patient educated on: diagnosis, medication risk/benefits and substance abuse Informed Consent: understands Reason for contiued inpatient stay Substantial Risk for: rapid decompensation
[2022-03-01 19:30] VITALS: BP 121/74; PULSE 71; TEMP 36.5
[2022-03-01] MEDS: Mirtazapine 7.5 MG TABLET PO (20:42)
[2022-03-01] MEDS: OLANZapine 10 MG TABLET PO (20:42)
[2022-03-01] MEDS: polyethylene glycoL 3350 17 GM POWD.PACK PO (20:42)
[2022-03-02 06:53] VITALS: BP 131/78; PULSE 70; RESP 16; TEMP 36.2; O2SAT 99
[2022-03-02] MEDS: Cholecalciferol (Vitamin D3) 25 MCG TABLET 50 MCG PO (08:49)
[2022-03-02] MEDS: Omeprazole 20 MG CAPSULE.DR PO (08:49)
[2022-03-02] MEDS: FLUoxetine HCl 20 MG CAPSULE PO (08:49)
[2022-03-02] MEDS: methADONE HCl 20 MG/2 ML ORAL.CONC 70 MG PO (08:50)
--- NOTE | 2022-03-02 13:16 | P.PNPSI_ITS ---
Subjective Subjective Date of Service: 03/02/22 Reason For Visit: crisis Interim History: seen with hungarian speaker Continues to say mood is so-so however denies SI. AH remains but he says that it comes and goes, is not as constant and is a little bit quieter. Continues to complain of waking up feeling startled throughout the night. Agrees to add clonidine to see if that helps with sleep. Because auditory hallucinations have decreased in their intensity and frequency he would like to remain on current dose of Zyprexa to see if he can have continued improvement at this dose. C ontinues to want [facility] Mental Status Exam Mental Status Exam Narrative: Pt is alert and oriented; behavior is cooperative, calm; patient is not in distress; dressed in casual attire with adequate hygiene; mood is described as so-so and affect congruent, a little blunted; eye contact appropriate; Speech is normal rate, volume and prosody and not pressured; no psychomotor agitation/retardation present; thought process is organized and goal directed; Thought content is on tx;, dealing with AH; otherwise pertinent to relevant topics and without any delusional content, paranoid ideations or grandiosity; Denies SI; Denies HI; endorses AH but less frequent and quieter; Patients insight and judgment is improving. Diagnostics Vital Signs (24Hr): Vital Signs - 24 hr 03/01/22 19:30 03/02/22 06:53 Temperature 97.7 F 97.2 F Pulse Rate 71 70 Respiratory Rate 16 Blood Pressure 121/74 131/78 Pulse Oximetry 99 Oxygen Delivery Method Room Air BMI result Body Mass Index 25.7 Labs Results: 02/27/22 15:11 02/28/22 08:22 Medications Medications Current Medications Acetaminophen (Acetaminophen 325 Mg Tablet) 650 mg PO Q6H PRN PRN Reason: Headache/Pain Mild Scale (1-3) Al Hydroxide/Mg Hydroxide (Magnesium Hydrox/Alum Hydrox 30 Ml Oral.Susp) 30 ml PO Q6H PRN PRN Reason: Heartburn/Nausea Clonidine HCl (Clonidine Hcl 0.1 Mg Tablet) 0.05 mg PO BID PRN; Protocol PRN Reason: hyperarousal Clonidine HCl (Clonidine Hcl 0.1 Mg Tablet) 0.1 mg PO BEDTIME [facility]; Protocol Fluoxetine HCl (Fluoxetine Hcl 20 Mg Capsule) 20 mg PO DAILY [facility] Last Admin: 03/02/22 08:49 Dose: 20 mg Guaifenesin/Dextromethorphan (Guaifenesin Dm 600/30 1 Tab Tab.Er.12h) 2 tab PO BID PRN PRN Reason: congestion Hydroxyzine HCl (Hydroxyzine Hcl 50 Mg Tablet) 50 mg PO Q6H PRN PRN Reason: Anxiety Magnesium Hydroxide (Milk Of Magnesia 30 Ml Oral.Susp) 30 ml PO DAILY PRN PRN Reason: Constipation Methadone HCl (Methadone Hcl 20 Mg/2 Ml Oral.Conc) 70 mg PO DAILY [facility] Last Admin: 03/02/22 08:50 Dose: 70 mg Mirtazapine (Mirtazapine 15 Mg Tablet) 15 mg PO BEDTIME [facility] Nicotine (Nicotine 21 Mg Patch.Td24) 21 mg TRANSDERMA DAILY PRN PRN Reason: smoking cessation Olanzapine (Olanzapine 10 Mg Tablet) 10 mg PO BEDTIME [facility] Last Admin: 03/01/22 20:42 Dose: 10 mg Omeprazole (Omeprazole 20 Mg Capsule.Dr) 20 mg PO DAILY@0630 [facility] Last Admin: 03/02/22 08:49 Dose: 20 mg Polyethylene Glycol (Polyethylene Glycol 3350 17 Gm Powd.Pack) 17 gm PO BID [facility] Last Admin: 03/02/22 09:29 Dose: Not Given Quetiapine Fumarate (Quetiapine Fumarate 50 Mg Tablet) 50 mg PO Q6H PRN PRN Reason: agitation, anxiety Trazodone HCl (Trazodone Hcl 50 Mg Tablet) 50 mg PO BEDTIME PRN PRN Reason: Insomnia Vitamin D (Cholecalciferol (Vitamin D3) 25 Mcg Tablet) 50 mcg PO DAILY [facility] Last Admin: 03/02/22 08:49 Dose: 50 mcg Allergies Allergies Allergy/AdvReac Type Severity Reaction Status Date / Time No Known Allergies Allergy Verified 01/17/22 11:39 [No Known Allergies*] Assessment & Plan Assessment & Plan (1) Opioid use disorder, moderate, dependence: Status: Acute Code(s): F11.20 - Opioid dependence, uncomplicated Assessment and Plan: * methadone increase to 70mg daily starting 03/01/2022 * additional increases to occur at OTP Destiney Gar is a 41 y.o. male who carries a dx of MDD with psychotic features, opioid use disorder, and cocaine use disorder. He presented to [facility] ED on 02/25/22 due to HI towards an unknown person, SI, and increased depression. Utox was positive for opiate, fentanyl, cocaine, and cannabis. He reports using methadone 65 mg that he obtains from the street. Per crisis eval, pt endorsed command AH, voices tell him everyday that nobody cares. Says he uses illicit substances to try to drown out the voices. No alcohol abuse. He was administered methadone 60 mg in the ED setting. Pt reports past benefit on seroquel for sx of anxiety, insomnia, will start 50 mg Q6H PRN. Will order addiction consult, as pt would like to increase his methadone dose. Will increase to 65 mg for tomorrow AM and evaluate for benefit. Reviewed EKG, no prolonged QTc. 02/28 patient remains depressed; he has chronic SI but children are strong protective factor and he denies any active thoughts, intention or plans.? He continues to have problematic auditory hallucinations.? However he says he only takes his medications when he remembers and therefore it remains very possible that current dose could be effective if taken consistently.? Patient carries a diagnosis of MDD with psychotic features.? He says he has had auditory hallucinations since he was a child; will try to rule out schizoaffective disorder.? Patient agrees that substance abuse, while taken to ameliorate problematic auditory hallucinations, remains an obstacle to treatment and he like a treatment program post discharge 03/01 not as depressed, still has AH but this is a little better; will increase mirtazapine for depression 03/02 patient's mood is so-so. He agrees to increased mirtazapine. He continues to wake up feeling startled throughout the night and agrees to trial of clonidine. Auditory hallucinations are little better so will leave Zyprexa at current dose. Patient denies any SI. Patient continues to want to get in to CSS PLAN: Q15 min safety checks, CV START Clonidine 0.1mg qhs for periodic waking up, possibly due to nigh tmares/trauma INCREASEd TO mirtazapine 15mg for continued depression(home med) started on seroquel? 50 mg Q6H PRN, anxiety Methadone was increase to 65 mg Addiction consult for Methadone continue olanzapine 10mg qhs (home med) continue fluoxetine 20mg (home med) SW pursuing CSS/substance abuse tx Monitor response to medications. Monitor for safety in the milieu. Discharge on stabilization. Patient seen. Chart reviewed. Discussed with team. Obtain collateral contact info?as needed I spent minutes with the patient and/or on the patient floor today, greater than?50% of which was spent counseling/coordinating care. Patient educated on: diagnosis, medication risk/benefits and substance abuse Informed Consent: understands Reason for contiued inpatient stay Substantial Risk for: rapid decompensation
[2022-03-02 21:00] VITALS: BP 140/69; PULSE 59
[2022-03-02] MEDS: Mirtazapine 15 MG TABLET PO (21:17)
[2022-03-02] MEDS: polyethylene glycoL 3350 17 GM POWD.PACK PO (21:17)
[2022-03-02] MEDS: cloNIDine HCL 0.1 MG TABLET PO (21:17)
[2022-03-02] MEDS: guaiFENesin DM 600/30 1 TAB TAB.ER.12H 2 TAB PO (21:17)
[2022-03-02] MEDS: OLANZapine 10 MG TABLET PO (21:17)
[2022-03-03 06:00] VITALS: BP 124/80; PULSE 72; RESP 18; TEMP 36.2; O2SAT 99
[2022-03-03] MEDS: Omeprazole 20 MG CAPSULE.DR PO (06:26)
--- NOTE | 2022-03-03 08:37 | HO.PSYCHPN ---
Subjective Subjective Date of Service: 03/03/22 Reason For Visit: crisis Interim History: Patient reports that his mood is much better. He denies SI. He still has auditory hallucinations but he says they are much quieter almost not bothersome. Patient also reports that he slept much better last night and though he still did wake up periodically he was not as startled and overall feels better rested. Residential Youth Counselor discussed history more and patient reports that he has had auditory hallucinations for much of his life which are present even when he is not depressed. Patient was curious about his diagnosis and account underwriter discussed schizoaffective disorder; patient says that his father and uncle this same set of symptoms and diagnosis. Patient expressed much gratitude for care he has received. Mental Status Exam Mental Status Exam Narrative: Pt is alert and oriented; behavior is cooperative, calm; patient is not in distress; dressed in casual attire with adequate hygiene; mood is described as better and affect congruent, brighter, relaxed; eye contact appropriate; Speech is normal rate, volume and prosody and not pressured; no psychomotor agitation/retardation present; thought process is organized and goal directed; Thought content is on tx; otherwise pertinent to relevant topics and without any delusional content, paranoid ideations or grandiosity; Denies SI; Denies HI; endorses AH but much less frequent and quieter; Patients insight and judgment are fair. Diagnostics Vital Signs (24Hr): Vital Signs - 24 hr 03/02/22 21:00 Pulse Rate 59 Blood Pressure 140/69 H BMI result Body Mass Index 25.7 Labs Results: 02/27/22 15:11 02/28/22 08:22 Medications Medications Current Medications Acetaminophen (Acetaminophen 325 Mg Tablet) 650 mg PO Q6H PRN PRN Reason: Headache/Pain Mild Scale (1-3) Al Hydroxide/Mg Hydroxide (Magnesium Hydrox/Alum Hydrox 30 Ml Oral.Susp) 30 ml PO Q6H PRN PRN Reason: Heartburn/Nausea Clonidine HCl (Clonidine Hcl 0.1 Mg Tablet) 0.05 mg PO BID PRN; Protocol PRN Reason: hyperarousal Clonidine HCl (Clonidine Hcl 0.1 Mg Tablet) 0.1 mg PO BEDTIME [facility]; Protocol Last Admin: 03/02/22 21:17 Dose: 0.1 mg Fluoxetine HCl (Fluoxetine Hcl 20 Mg Capsule) 20 mg PO DAILY [facility] Last Admin: 03/02/22 08:49 Dose: 20 mg Guaifenesin/Dextromethorphan (Guaifenesin Dm 600/30 1 Tab Tab.Er.12h) 2 tab PO BID PRN PRN Reason: congestion Last Admin: 03/02/22 21:17 Dose: 2 tab Hydroxyzine HCl (Hydroxyzine Hcl 50 Mg Tablet) 50 mg PO Q6H PRN PRN Reason: Anxiety Magnesium Hydroxide (Milk Of Magnesia 30 Ml Oral.Susp) 30 ml PO DAILY PRN PRN Reason: Constipation Methadone HCl (Methadone Hcl 20 Mg/2 Ml Oral.Conc) 70 mg PO DAILY [facility] Last Admin: 03/02/22 08:50 Dose: 70 mg Mirtazapine (Mirtazapine 15 Mg Tablet) 15 mg PO BEDTIME [facility] Last Admin: 03/02/22 21:17 Dose: 15 mg Nicotine (Nicotine 21 Mg Patch.Td24) 21 mg TRANSDERMA DAILY PRN PRN Reason: smoking cessation Olanzapine (Olanzapine 10 Mg Tablet) 10 mg PO BEDTIME [facility] Last Admin: 03/02/22 21:17 Dose: 10 mg Omeprazole (Omeprazole 20 Mg Capsule.Dr) 20 mg PO DAILY@0630 [facility] Last Admin: 03/03/22 06:26 Dose: 20 mg Polyethylene Glycol (Polyethylene Glycol 3350 17 Gm Powd.Pack) 17 gm PO BID [facility] Last Admin: 03/02/22 21:17 Dose: 17 gm Quetiapine Fumarate (Quetiapine Fumarate 50 Mg Tablet) 50 mg PO Q6H PRN PRN Reason: agitation, anxiety Trazodone HCl (Trazodone Hcl 50 Mg Tablet) 50 mg PO BEDTIME PRN PRN Reason: Insomnia Vitamin D (Cholecalciferol (Vitamin D3) 25 Mcg Tablet) 50 mcg PO DAILY [facility] Last Admin: 03/02/22 08:49 Dose: 50 mcg Allergies Allergies Allergy/AdvReac Type Severity Reaction Status Date / Time No Known Allergies Allergy Verified 01/17/22 11:39 [No Known Allergies*] Assessment & Plan Assessment & Plan (1) Schizoaffective disorder, depressive type: Status: Acute Code(s): F25.1 - Schizoaffective disorder, depressive type (2) Cocaine use disorder: Status: Acute Code(s): F14.10 - Cocaine abuse, uncomplicated (3) Opioid use disorder, moderate, dependence: Status: Acute Code(s): F11.20 - Opioid dependence, uncomplicated Assessment and Plan: methadone increase to 70mg daily starting 03/01/2022 additional increases to occur at OTP Destiney Gar is a 41 y.o. male who carries a dx of MDD with psychotic features (changed to Schizoaffective, depressive type), opioid use disorder, and cocaine use disorder. He presented to [facility] ED on 02/25/22 due to HI towards an unknown person, SI, and increased depression. Utox was positive for opiate, fentanyl, cocaine, and cannabis. He reports using methadone 65 mg that he obtains from the street. Per crisis eval, pt endorsed command AH, voices tell him everyday that nobody cares. Says he uses illicit substances to try to drown out the voices. No alcohol abuse. He was administered methadone 60 mg in the ED setting. Pt reports past benefit on seroquel for sx of anxiety, insomnia, will start 50 mg Q6H PRN. Will order addiction consult, as pt would like to increase his methadone dose. Will increase to 65 mg for tomorrow AM and evaluate for benefit. Reviewed EKG, no prolonged QTc. 02/28 patient remains depressed; he has chronic SI but children are strong protective factor and he denies any active thoughts, intention or plans.? He continues to have problematic auditory hallucinations.? However he says he only takes his medications when he remembers and therefore it remains very possible that current dose could be effective if taken consistently.? Patient carries a diagnosis of MDD with psychotic features.? He says he has had auditory hallucinations since he was a child; will try to rule out schizoaffective disorder.? Patient agrees that substance abuse, while taken to ameliorate problematic auditory hallucinations, remains an obstacle to treatment and he like a treatment program post discharge 03/01 not as depressed, still has AH but this is a little better; will increase mirtazapine for depression 03/02 patient's mood is so-so. He agrees to increased mirtazapine. He continues to wake up feeling startled throughout the night and agrees to trial of clonidine. Auditory hallucinations are little better so will leave Zyprexa at current dose. Patient denies any SI. Patient continues to want to get in to CSS 03/03 patient reports symptoms are much better; no SI; sleeping better with clonidine; auditory hallucinations remain however they are less frequent and much quieter. Discussed diagnosis of schizoaffective disorder as patient has AH throughout his life including during times when he is not depressed. Residential Youth Counselor and patient also discussed his work history; he says that he frequently gets fired from jobs; he explains how he finds it difficult to concentrate or remember things secondary to being internally preoccupied. Residential Youth Counselor agrees that patient's diagnosis and subsequent symptoms are a significant barrier to to patient being successfully employed. PLAN: Q15 min safety checks, CV Continue Clonidine 0.1mg qhs for periodic waking up, possibly due to nightmares/trauma Continue mirtazapine 15mg for continued depression(home med; increased) started on seroquel? 50 mg Q6H PRN, anxiety Methadone was increase to 65 mg Addiction consult for Methadone continue olanzapine 10mg qhs (home med) continue fluoxetine 20mg (home med) SW pursuing CSS/substance abuse tx Monitor response to medications. Monitor for safety in the milieu. Discharge on stabilization. Patient seen. Chart reviewed. Discussed with team. Obtain collateral contact info?as needed I spent minutes with the patient and/or on the patient floor today, greater than?50% of which was spent counseling/coordinating care. Patient educated on: diagnosis Informed Consent: understands Reason for contiued inpatient stay Substantial Risk for: other
[2022-03-03] MEDS: methADONE HCl 20 MG/2 ML ORAL.CONC 70 MG PO (10:01)
[2022-03-03] MEDS: Cholecalciferol (Vitamin D3) 25 MCG TABLET 50 MCG PO (10:03)
[2022-03-03] MEDS: FLUoxetine HCl 20 MG CAPSULE PO (10:04)
[2022-03-03] MEDS: Acetaminophen 325 MG TABLET 650 MG PO ×2 (10:49→17:40)
[2022-03-03 21:15] VITALS: BP 126/60; PULSE 71
[2022-03-03] MEDS: Mirtazapine 15 MG TABLET PO (21:30)
[2022-03-03] MEDS: cloNIDine HCL 0.1 MG TABLET PO (21:30)
[2022-03-03] MEDS: OLANZapine 10 MG TABLET PO (21:30)
[2022-03-03] MEDS: polyethylene glycoL 3350 17 GM POWD.PACK PO (21:31)
[2022-03-04] MEDS: Omeprazole 20 MG CAPSULE.DR PO (06:25)
[2022-03-04 06:41] VITALS: BP 114/63; PULSE 61; RESP 14; TEMP 36.4; O2SAT 95
[2022-03-04] MEDS: Cholecalciferol (Vitamin D3) 25 MCG TABLET 50 MCG PO (09:36)
[2022-03-04] MEDS: FLUoxetine HCl 20 MG CAPSULE PO (09:36)
[2022-03-04] MEDS: methADONE HCl 20 MG/2 ML ORAL.CONC 70 MG PO (09:38)
--- NOTE | 2022-03-04 17:18 | P.PNPSI_ITS ---
Subjective Subjective Date of Service: 03/04/22 Reason For Visit: crisis Interim History: Patient reports that he has is still doing better. Auditory hallucinations remain but they are very minimal. Patient complains of a headache and will try ibuprofen. Discussed CSS/substance abuse tx and patient is here to go. He says he prefers to goes directly from the unit to the program because he does not want to risk decompensating. Mental Status Exam Mental Status Exam Narrative: Pt is alert and oriented; behavior is cooperative, calm; patient is not in distress; dressed in casual attire with adequate hygiene; mood is described as better and affect congruent, brighter, relaxed; eye contact appropriate; Speech is normal rate, volume and prosody and not pressured; no psychomotor agitation/retardation present; thought process is organized and goal directed; Thought content is on tx; otherwise pertinent to relevant topics and without any delusional content, paranoid ideations or grandiosity; Denies SI; Denies HI; endorses AH but much less frequent and quieter; Patients insight and judgment are fair. Diagnostics Vital Signs (24Hr): Vital Signs - 24 hr 03/03/22 21:15 03/04/22 06:41 Temperature 97.6 F Pulse Rate 71 61 Respiratory Rate 14 Blood Pressure 126/60 114/63 Pulse Oximetry 95 Oxygen Delivery Method Room Air BMI result Body Mass Index 25.7 Labs Results: 02/27/22 15:11 02/28/22 08:22 Medications Medications Current Medications Al Hydroxide/Mg Hydroxide (Magnesium Hydrox/Alum Hydrox 30 Ml Oral.Susp) 30 ml PO Q6H PRN PRN Reason: Heartburn/Nausea Clonidine HCl (Clonidine Hcl 0.1 Mg Tablet) 0.05 mg PO BID PRN; Protocol PRN Reason: hyperarousal Clonidine HCl (Clonidine Hcl 0.1 Mg Tablet) 0.1 mg PO BEDTIME DANNIE; Protocol Last Admin: 03/03/22 21:30 Dose: 0.1 mg Fluoxetine HCl (Fluoxetine Hcl 20 Mg Capsule) 20 mg PO DAILY [facility] Last Admin: 03/04/22 09:36 Dose: 20 mg Guaifenesin/Dextromethorphan (Guaifenesin Dm 600/30 1 Tab Tab.Er.12h) 2 tab PO BID PRN PRN Reason: congestion Last Admin: 03/02/22 21:17 Dose: 2 tab Hydroxyzine HCl (Hydroxyzine Hcl 50 Mg Tablet) 50 mg PO Q6H PRN PRN Reason: Anxiety Ibuprofen (Ibuprofen 600 Mg Tablet) 600 mg PO Q6H PRN PRN Reason: mild pain/headache Magnesium Hydroxide (Milk Of Magnesia 30 Ml Oral.Susp) 30 ml PO DAILY PRN PRN Reason: Constipation Methadone HCl (Methadone Hcl 20 Mg/2 Ml Oral.Conc) 70 mg PO DAILY [facility] Last Admin: 03/04/22 09:38 Dose: 70 mg Mirtazapine (Mirtazapine 15 Mg Tablet) 15 mg PO BEDTIME [facility] Last Admin: 03/03/22 21:30 Dose: 15 mg Nicotine (Nicotine 21 Mg Patch.Td24) 21 mg TRANSDERMA DAILY PRN PRN Reason: smoking cessation Olanzapine (Olanzapine 10 Mg Tablet) 10 mg PO BEDTIME [facility] Last Admin: 03/03/22 21:30 Dose: 10 mg Omeprazole (Omeprazole 20 Mg Capsule.Dr) 20 mg PO DAILY@0630 [facility] Last Admin: 03/04/22 06:25 Dose: 20 mg Polyethylene Glycol (Polyethylene Glycol 3350 17 Gm Powd.Pack) 17 gm PO BID [facility] Last Admin: 03/04/22 09:37 Dose: Not Given Quetiapine Fumarate (Quetiapine Fumarate 50 Mg Tablet) 50 mg PO Q6H PRN PRN Reason: agitation, anxiety Trazodone HCl (Trazodone Hcl 50 Mg Tablet) 50 mg PO BEDTIME PRN PRN Reason: Insomnia Vitamin D (Cholecalciferol (Vitamin D3) 25 Mcg Tablet) 50 mcg PO DAILY [facility] Last Admin: 03/04/22 09:36 Dose: 50 mcg Allergies Allergies Allergy/AdvReac Type Severity Reaction Status Date / Time No Known Allergies Allergy Verified 01/17/22 11:39 [No Known Allergies*] Assessment & Plan Assessment & Plan (1) Schizoaffective disorder, depressive type: Status: Acute Code(s): F25.1 - Schizoaffective disorder, depressive type (2) Cocaine use disorder: Status: Acute Code(s): F14.10 - Cocaine abuse, uncomplicated (3) Opioid use disorder, moderate, dependence: Status: Acute Code(s): F11.20 - Opioid dependence, uncomplicated Assessment and Plan: * methadone increase to 70mg daily starting 03/01/2022 * additional increases to occur at OT Destiney Gar is a 41 y.o. male who carries a dx of MDD with psychotic features (changed to Schizoaffective, depressive type), opioid use disorder, and cocaine use disorder. He presented to [facility] ED on 02/25/22 due to HI towards an unknown person, SI, and increased depression. Utox was positive for opiate, fentanyl, cocaine, and cannabis. He reports using methadone 65 mg that he obtains from the street. Per crisis eval, pt endorsed command AH, voices tell him everyday that nobody cares. Says he uses illicit substances to try to drown out the voices. No alcohol abuse. He was administered methadone 60 mg in the ED setting. Pt reports past benefit on seroquel for sx of anxiety, insomnia, will start 50 mg Q6H PRN. Will order addiction consult, as pt would like to increase his methadone dose. Will increase to 65 mg for tomorrow AM and evaluate for benefit. Reviewed EKG, no prolonged QTc. 02/28 patient remains depressed; he has chronic SI but children are strong protective factor and he denies any active thoughts, intention or plans.? He continues to have problematic auditory hallucinations.? However he says he only takes his medications when he remembers and therefore it remains very possible that current dose could be effective if taken consistently.? Patient carries a diagnosis of MDD with psychotic features.? He says he has had auditory hallucinations since he was a child; will try to rule out schizoaffective disorder.? Patient agrees that substance abuse, while taken to ameliorate problematic auditory hallucinations, remains an obstacle to treatment and he like a treatment program post discharge 03/01 not as depressed, still has AH but this is a little better; will increase mirtazapine for depression 03/02 patient's mood is so-so. He agrees to increased mirtazapine. He continues to wake up feeling startled throughout the night and agrees to trial of clonidine. Auditory hallucinations are little better so will leave Zyprexa at current dose. Patient denies any SI. Patient continues to want to get in to CSS 03/03 patient reports symptoms are much better; no SI; sleeping better with clonidine; auditory hallucinations remain however they are less frequent and much quieter. Discussed diagnosis of schizoaffective disorder as patient has AH throughout his life including during times when he is not depressed. 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 Commercial Assistant agrees that patient's diagnosis and subsequent symptoms are a significant barrier to to patient being successfully employed. PLAN: Q15 min safety checks, CV dc tylenol and try ibuprofen Continue Clonidine 0.1mg qhs for periodic waking up, possibly due to nightmares/trauma Continue mirtazapine 15mg for continued depression(home med; increased) started on seroquel? 50 mg Q6H PRN, anxiety Methadone was increase to 65 mg Addiction consult for Methadone continue olanzapine 10mg qhs (home med) continue fluoxetine 20mg (home med) SW pursuing CSS/substance abuse tx Monitor response to medications. Monitor for safety in the milieu. Discharge on stabilization. Patient seen. Chart reviewed. Discussed with team. Obtain collateral contact info?as needed I spent minutes with the patient and/or on the patient floor today, greater than?50% of which was spent counseling/coordinating care. Patient educated on: substance abuse and therapeutic strategies Informed Consent: understands Reason for contiued inpatient stay Substantial Risk for: stable for discharge
[2022-03-04 17:55] VITALS: BP 115/68; PULSE 73; RESP 18; TEMP 36.4; O2SAT 97
[2022-03-04 20:30] VITALS: BP 110/73; PULSE 66
[2022-03-04] MEDS: Mirtazapine 15 MG TABLET PO (20:41)
[2022-03-04] MEDS: OLANZapine 10 MG TABLET PO (20:41)
[2022-03-04] MEDS: polyethylene glycoL 3350 17 GM POWD.PACK PO (20:41)
[2022-03-04] MEDS: cloNIDine HCL 0.1 MG TABLET PO (20:41)
[2022-03-05 06:00] VITALS: BP 116/74; PULSE 70; RESP 14; TEMP 37.2; O2SAT 97
[2022-03-05] MEDS: FLUoxetine HCl 20 MG CAPSULE PO (08:00)
[2022-03-05] MEDS: Cholecalciferol (Vitamin D3) 25 MCG TABLET 50 MCG PO (08:00)
[2022-03-05] MEDS: Omeprazole 20 MG CAPSULE.DR PO (08:00)
[2022-03-05] MEDS: methADONE HCl 20 MG/2 ML ORAL.CONC 70 MG PO (08:00)
--- NOTE | 2022-03-05 16:24 | HO.PSYCHPN ---
Subjective Subjective Date of Service: 03/05/22 Reason For Visit: crisis Interim History: Patient lying in bed quietly today. He says his mood is so-so and complains of continued headache. He agrees to try combination of Tylenol, aspirin and caffeine Mental Status Exam Mental Status Exam Narrative: Pt is alert and oriented; behavior is cooperative, calm; patient is not in distress; dressed in casual attire with adequate hygiene; mood is described as so-so and affect congruent, blunted; eye contact appropriate; Speech is normal rate, volume and prosody and not pressured; no psychomotor agitation/retardation present; thought process is organized and goal directed; Thought content is on tx; otherwise pertinent to relevant topics and without any delusional content, paranoid ideations or grandiosity; Denies SI; Denies HI; endorses AH but much less frequent and quieter; Patients insight and judgment are fair. Diagnostics Vital Signs (24Hr): Vital Signs - 24 hr 03/04/22 17:55 03/04/22 20:30 03/05/22 06:00 Temperature 97.5 F 99.0 F Pulse Rate 73 66 70 Respiratory Rate 18 14 Blood Pressure 115/68 110/73 116/74 Pulse Oximetry 97 97 Oxygen Delivery Method Room Air Room Air BMI result Body Mass Index 25.7 Labs Results: 02/27/22 15:11 02/28/22 08:22 Medications Medications Current Medications Al Hydroxide/Mg Hydroxide (Magnesium Hydrox/Alum Hydrox 30 Ml Oral.Susp) 30 ml PO Q6H PRN PRN Reason: Heartburn/Nausea Clonidine HCl (Clonidine Hcl 0.1 Mg Tablet) 0.05 mg PO BID PRN; Protocol PRN Reason: hyperarousal Clonidine HCl (Clonidine Hcl 0.1 Mg Tablet) 0.1 mg PO BEDTIME [facility]ANN[facility]; Protocol Last Admin: 03/04/22 20:41 Dose: 0.1 mg Fluoxetine HCl (Fluoxetine Hcl 20 Mg Capsule) 20 mg PO DAILY [facility] Last Admin: 03/05/22 08:00 Dose: 20 mg Guaifenesin/Dextromethorphan (Guaifenesin Dm 600/30 1 Tab Tab.Er.12h) 2 tab PO BID PRN PRN Reason: congestion Last Admin: 03/02/22 21:17 Dose: 2 tab Hydroxyzine HCl (Hydroxyzine Hcl 50 Mg Tablet) 50 mg PO Q6H PRN PRN Reason: Anxiety Ibuprofen (Ibuprofen 600 Mg Tablet) 600 mg PO Q6H PRN PRN Reason: mild pain/headache Magnesium Hydroxide (Milk Of Magnesia 30 Ml Oral.Susp) 30 ml PO DAILY PRN PRN Reason: Constipation Methadone HCl (Methadone Hcl 20 Mg/2 Ml Oral.Conc) 70 mg PO DAILY [facility] Last Admin: 03/05/22 08:00 Dose: 70 mg Mirtazapine (Mirtazapine 15 Mg Tablet) 15 mg PO BEDTIME [facility] Last Admin: 03/04/22 20:41 Dose: 15 mg Nicotine (Nicotine 21 Mg Patch.Td24) 21 mg TRANSDERMA DAILY PRN PRN Reason: smoking cessation Olanzapine (Olanzapine 10 Mg Tablet) 10 mg PO BEDTIME [facility] Last Admin: 03/04/22 20:41 Dose: 10 mg Omeprazole (Omeprazole 20 Mg Capsule.Dr) 20 mg PO DAILY@0630 [facility] Last Admin: 03/05/22 08:00 Dose: 20 mg Polyethylene Glycol (Polyethylene Glycol 3350 17 Gm Powd.Pack) 17 gm PO BID [facility] Last Admin: 03/05/22 08:00 Dose: Not Given Quetiapine Fumarate (Quetiapine Fumarate 50 Mg Tablet) 50 mg PO Q6H PRN PRN Reason: agitation, anxiety Trazodone HCl (Trazodone Hcl 50 Mg Tablet) 50 mg PO BEDTIME PRN PRN Reason: Insomnia Vitamin D (Cholecalciferol (Vitamin D3) 25 Mcg Tablet) 50 mcg PO DAILY [facility] Last Admin: 03/05/22 08:00 Dose: 50 mcg Allergies Allergies Allergy/AdvReac Type Severity Reaction Status Date / Time No Known Allergies Allergy Verified 01/17/22 11:39 [No Known Allergies*] Assessment & Plan Assessment & Plan (1) Schizoaffective disorder, depressive type: Status: Acute Code(s): F25.1 - Schizoaffective disorder, depressive type (2) Cocaine use disorder: Status: Acute Code(s): F14.10 - Cocaine abuse, uncomplicated (3) Opioid use disorder, moderate, dependence: Status: Acute Code(s): F11.20 - Opioid dependence, uncomplicated Assessment and Plan: methadone increase to 70mg daily starting 03/01/2022 additional increases to occur at OTP Destiney Gar is a 41 y.o. male who carries a dx of MDD with psychotic features (changed to Schizoaffective, depressive type), opioid use disorder, and cocaine use disorder. He presented to [facility] ED on 02/25/22 due to HI towards an unknown person, SI, and increased depression. Utox was positive for opiate, fentanyl, cocaine, and cannabis. He reports using methadone 65 mg that he obtains from the street. Per crisis eval, pt endorsed command AH, voices tell him everyday that nobody cares. Says he uses illicit substances to try to drown out the voices. No alcohol abuse. He was administered methadone 60 mg in the ED setting. Pt reports past benefit on seroquel for sx of anxiety, insomnia, will start 50 mg Q6H PRN. Will order addiction consult, as pt would like to increase his methadone dose. Will increase to 65 mg for tomorrow AM and evaluate for benefit. Reviewed EKG, no prolonged QTc. 02/28 patient remains depressed; he has chronic SI but children are strong protective factor and he denies any active thoughts, intention or plans.? He continues to have problematic auditory hallucinations.? However he says he only takes his medications when he remembers and therefore it remains very possible that current dose could be effective if taken consistently.? Patient carries a diagnosis of MDD with psychotic features.? He says he has had auditory hallucinations since he was a child; will try to rule out schizoaffective disorder.? Patient agrees that substance abuse, while taken to ameliorate problematic auditory hallucinations, remains an obstacle to treatment and he like a treatment program post discharge 03/01 not as depressed, still has AH but this is a little better; will increase mirtazapine for depression 03/02 patient's mood is so-so. He agrees to increased mirtazapine. He continues to wake up feeling startled throughout the night and agrees to trial of clonidine. Auditory hallucinations are little better so will leave Zyprexa at current dose. Patient denies any SI. Patient continues to want to get in to CSS 03/03 patient reports symptoms are much better; no SI; sleeping better with clonidine; auditory hallucinations remain however they are less frequent and much quieter. Discussed diagnosis of schizoaffective disorder as patient has AH throughout his life including during times when he is not depressed. 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 Pressfitter agrees that patient's diagnosis and subsequent symptoms are a significant barrier to to patient being successfully employed. PLAN: Q15 min safety checks, CV Will try combination of Tylenol, aspirin and caffeine for headache Continue Clonidine 0.1mg qhs for periodic waking up, possibly due to nightmares/trauma Continue mirtazapine 15mg for continued depression(home med; increased) started on seroquel? 50 mg Q6H PRN, anxiety Methadone was increase to 65 mg Addiction consult for Methadone continue olanzapine 10mg qhs (home med) continue fluoxetine 20mg (home med) SW pursuing CSS/substance abuse tx Monitor response to medications. Monitor for safety in the milieu. Discharge on stabilization. Patient seen. Chart reviewed. Discussed with team. Obtain collateral contact info?as needed I spent minutes with the patient and/or on the patient floor today, greater than?50% of which was spent counseling/coordinating care. Patient educated on: medical condition Informed Consent: understands Reason for contiued inpatient stay Substantial Risk for: stable for discharge
[2022-03-05] MEDS: Acetaminophen 325 MG TABLET 650 MG PO (16:55)
[2022-03-05] MEDS: Aspirin Enteric Coated 325 MG TABLET.DR PO (16:55)
[2022-03-05 18:00] VITALS: BP 127/80; PULSE 55; RESP 18; TEMP 36.3; O2SAT 99
[2022-03-05] MEDS: Mirtazapine 15 MG TABLET PO (22:37)
[2022-03-05] MEDS: cloNIDine HCL 0.1 MG TABLET PO (22:38)
[2022-03-05] MEDS: Sodium Chloride 0.65 % Nasal 44 ML SPRBTL 1 SPRAY NOSTRIL-B (22:38)
[2022-03-05] MEDS: OLANZapine 10 MG TABLET PO (22:40)
[2022-03-06 06:00] VITALS: BP 121/78; PULSE 64; RESP 16; TEMP 36.6; O2SAT 97
[2022-03-06] MEDS: Omeprazole 20 MG CAPSULE.DR PO (06:24)
[2022-03-06] MEDS: FLUoxetine HCl 20 MG CAPSULE PO (07:57)
[2022-03-06] MEDS: Cholecalciferol (Vitamin D3) 25 MCG TABLET 50 MCG PO (07:57)
[2022-03-06] MEDS: methADONE HCl 20 MG/2 ML ORAL.CONC 70 MG PO (07:57)
[2022-03-06] MEDS: Sodium Chloride 0.65 % Nasal 44 ML SPRBTL 1 SPRAY NOSTRIL-B ×2 (12:59→22:44)
--- NOTE | 2022-03-06 16:50 | HO.PSYCHPN ---
Subjective Subjective Date of Service: 03/06/22 Reason For Visit: crisis Interim History: Late entry note for patient seen on 03/06 Patient reports headache is better today but that it comes and goes. He says auditory hallucinations are very little. His mood is the same Patient also asks to go straight to [facility] afraid he will relapse if he goes home in-between. Mental Status Exam Mental Status Exam Narrative: Pt is alert and oriented; behavior is cooperative, calm; patient is not in distress; dressed in casual attire with adequate hygiene; mood is described as the same and affect congruent; not blunted; eye contact appropriate; Speech is normal rate, volume and prosody and not pressured; no psychomotor agitation/retardation present; thought process is organized and goal directed; Thought content is on tx; otherwise pertinent to relevant topics and without any delusional content, paranoid ideations or grandiosity; Denies SI; Denies HI; endorses AH but much less frequent and quieter; Patients insight and judgment are fair. Diagnostics Vital Signs (24Hr): Vital Signs - 24 hr 03/06/22 20:50 03/07/22 06:00 03/07/22 16:45 Temperature 97.7 F 97.6 F Pulse Rate 65 74 95 Respiratory Rate 16 20 Blood Pressure 171/61 H 116/76 126/83 Pulse Oximetry 98 95 Oxygen Delivery Method Room Air Room Air BMI result Body Mass Index 25.7 Labs Results: 02/27/22 15:11 02/28/22 08:22 Medications Medications Current Medications Acetaminophen/Butalbital/Caffeine (Butalb/Acetamin/Caff 50/325/40 Tablet) 1 tab PO ONCE PRN PRN Reason: headache Al Hydroxide/Mg Hydroxide (Magnesium Hydrox/Alum Hydrox 30 Ml Oral.Susp) 30 ml PO Q6H PRN PRN Reason: Heartburn/Nausea Clonidine HCl (Clonidine Hcl 0.1 Mg Tablet) 0.05 mg PO BID PRN; Protocol PRN Reason: hyperarousal Clonidine HCl (Clonidine Hcl 0.1 Mg Tablet) 0.1 mg PO BEDTIME DANNIE; Protocol Last Admin: 03/06/22 20:56 Dose: 0.1 mg Fluoxetine HCl (Fluoxetine Hcl 20 Mg Capsule) 20 mg PO DAILY [facility] Last Admin: 03/07/22 08:36 Dose: 20 mg Guaifenesin/Dextromethorphan (Guaifenesin Dm 600/30 1 Tab Tab.Er.12h) 2 tab PO BID PRN PRN Reason: congestion Last Admin: 03/02/22 21:17 Dose: 2 tab Hydroxyzine HCl (Hydroxyzine Hcl 50 Mg Tablet) 50 mg PO Q6H PRN PRN Reason: Anxiety Ibuprofen (Ibuprofen 600 Mg Tablet) 600 mg PO Q6H PRN PRN Reason: mild pain/headache Last Admin: 03/06/22 20:59 Dose: 600 mg Magnesium Hydroxide (Milk Of Magnesia 30 Ml Oral.Susp) 30 ml PO DAILY PRN PRN Reason: Constipation Methadone HCl (Methadone Hcl 20 Mg/2 Ml Oral.Conc) 70 mg PO DAILY [facility] Last Admin: 03/07/22 08:34 Dose: 70 mg Mirtazapine (Mirtazapine 15 Mg Tablet) 15 mg PO BEDTIME [facility] Last Admin: 03/06/22 20:55 Dose: 15 mg Nicotine (Nicotine 21 Mg Patch.Td24) 21 mg TRANSDERMA DAILY PRN PRN Reason: smoking cessation Olanzapine (Olanzapine 10 Mg Tablet) 10 mg PO BEDTIME [facility] Last Admin: 03/06/22 20:56 Dose: 10 mg Omeprazole (Omeprazole 20 Mg Capsule.Dr) 20 mg PO DAILY@0630 [facility] Last Admin: 03/07/22 05:54 Dose: 20 mg Polyethylene Glycol (Polyethylene Glycol 3350 17 Gm Powd.Pack) 17 gm PO BID [facility] Last Admin: 03/07/22 08:36 Dose: Not Given Quetiapine Fumarate (Quetiapine Fumarate 50 Mg Tablet) 50 mg PO Q6H PRN PRN Reason: agitation, anxiety Sodium Chloride (Sodium Chloride 0.65 % Nasal 44 Ml Sprbtl) 1 spray NOSTRIL-B Q1H PRN PRN Reason: dry nares Last Admin: 03/06/22 22:44 Dose: 1 spray Trazodone HCl (Trazodone Hcl 50 Mg Tablet) 50 mg PO BEDTIME PRN PRN Reason: Insomnia Vitamin D (Cholecalciferol (Vitamin D3) 25 Mcg Tablet) 50 mcg PO DAILY [facility] Last Admin: 03/07/22 08:36 Dose: 50 mcg Allergies Allergies Allergy/AdvReac Type Severity Reaction Status Date / Time No Known Allergies Allergy Verified 01/17/22 11:39 [No Known Allergies*] Assessment & Plan Assessment & Plan (1) Schizoaffective disorder, depressive type: Status: Acute Code(s): F25.1 - Schizoaffective disorder, depressive type (2) Cocaine use disorder: Status: Acute Code(s): F14.10 - Cocaine abuse, uncomplicated (3) Opioid use disorder, moderate, dependence: Status: Acute Code(s): F11.20 - Opioid dependence, uncomplicated Assessment and Plan: methadone increase to 70mg daily starting 03/01/2022 additional increases to occur at OTP Destiney Gar is a 41 y.o. male who carries a dx of MDD with psychotic features (changed to Schizoaffective, depressive type), opioid use disorder, and cocaine use disorder. He presented to [facility] [place] [facility] ED on 02/25/22 due to HI towards an unknown person, SI, and increased depression. Utox was positive for opiate, fentanyl, cocaine, and cannabis. He reports using methadone 65 mg that he obtains from the street. Per crisis eval, pt endorsed command AH, voices tell him everyday that nobody cares. Says he uses illicit substances to try to drown out the voices. No alcohol abuse. He was administered methadone 60 mg in the ED setting. Pt reports past benefit on seroquel for sx of anxiety, insomnia, will start 50 mg Q6H PRN. Will order addiction consult, as pt would like to increase his methadone dose. Will increase to 65 mg for tomorrow AM and evaluate for benefit. Reviewed EKG, no prolonged QTc. 02/28 patient remains depressed; he has chronic SI but children are strong protective factor and he denies any active thoughts, intention or plans.? He continues to have problematic auditory hallucinations.? However he says he only takes his medications when he remembers and therefore it remains very possible that current dose could be effective if taken consistently.? Patient carries a diagnosis of MDD with psychotic features.? He says he has had auditory hallucinations since he was a child; will try to rule out schizoaffective disorder.? Patient agrees that substance abuse, while taken to ameliorate problematic auditory hallucinations, remains an obstacle to treatment and he like a treatment program post discharge 03/01 not as depressed, still has AH but this is a little better; will increase mirtazapine for depression 03/02 patient's mood is so-so. He agrees to increased mirtazapine. He continues to wake up feeling startled throughout the night and agrees to trial of clonidine. Auditory hallucinations are little better so will leave Zyprexa at current dose. Patient denies any SI. Patient continues to want to get in to CSS 03/03 patient reports symptoms are much better; no SI; sleeping better with clonidine; auditory hallucinations remain however they are less frequent and much quieter. Discussed diagnosis of schizoaffective disorder as patient has AH throughout his life including during times when he is not depressed. 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 PLAN: Q15 min safety checks, CV Will try combination of Tylenol, aspirin and caffeine for headache Continue Clonidine 0.1mg qhs for periodic waking up, possibly due to nightmares/trauma Continue mirtazapine 15mg for continued depression(home med; increased) started on seroquel? 50 mg Q6H PRN, anxiety Methadone was increase to 65 mg Addiction consult for Methadone continue olanzapine 10mg qhs (home med) continue fluoxetine 20mg (home med) SW pursuing CSS/substance abuse tx Monitor response to medications. Monitor for safety in the milieu. Discharge on stabilization. Patient seen. Chart reviewed. Discussed with team. Obtain collateral contact info?as needed I spent minutes with the patient and/or on the patient floor today, greater than?50% of which was spent counseling/coordinating care. Reason for contiued inpatient stay Substantial Risk for: stable for discharge
[2022-03-06 20:50] VITALS: BP 171/61; PULSE 65; TEMP 36.5
[2022-03-06] MEDS: Mirtazapine 15 MG TABLET PO (20:55)
[2022-03-06] MEDS: OLANZapine 10 MG TABLET PO (20:56)
[2022-03-06] MEDS: cloNIDine HCL 0.1 MG TABLET PO (20:56)
[2022-03-06] MEDS: Ibuprofen 600 MG TABLET PO (20:59)
[2022-03-06] MEDS: polyethylene glycoL 3350 17 GM POWD.PACK PO (21:01)
[2022-03-07] MEDS: Omeprazole 20 MG CAPSULE.DR PO (05:54)
[2022-03-07 06:00] VITALS: BP 116/76; PULSE 74; RESP 16; O2SAT 98
[2022-03-07] MEDS: methADONE HCl 20 MG/2 ML ORAL.CONC 70 MG PO (08:34)
[2022-03-07] MEDS: Cholecalciferol (Vitamin D3) 25 MCG TABLET 50 MCG PO (08:36)
[2022-03-07] MEDS: FLUoxetine HCl 20 MG CAPSULE PO (08:36)
--- NOTE | 2022-03-07 13:01 | P.PNPSI_ITS ---
Subjective Subjective Date of Service: 03/07/22 Reason For Visit: crisis Interim History: Late entry note for patient seen on 03/07 Patient reports that his mood remains overall better and says it is pretty good. He has a headache today which he says is bothersome; patient says that he sometimes sees lights flickering before the headache comes on and some flashing colors. He reports that his mother had migraines. Clinical Documentation Consultant offers some headache medication which patient agrees to try. AH remain but also remain significantly reduced. No SI Mental Status Exam Mental Status Exam Narrative: Pt is alert and oriented; behavior is cooperative, calm; patient is not in distr ess; dressed in casual attire with adequate hygiene; mood is described as pretty good and affect congruent; not blunted; eye contact appropriate; Speech is normal rate, volume and prosody and not pressured; no psychomotor agitation/retardation present; thought process is organized and goal directed; Thought content is on tx; otherwise pertinent to relevant topics and without any delusional content, paranoid ideations or grandiosity; Denies SI; Denies HI; endorses AH but much less frequent and quieter; Patients insight and judgment are fair. Diagnostics Vital Signs (24Hr): Vital Signs - 24 hr 03/07/22 16:45 03/08/22 06:30 Temperature 97.6 F 96.5 F L Pulse Rate 95 57 Respiratory Rate 20 18 Blood Pressure 126/83 131/64 Pulse Oximetry 95 95 Oxygen Delivery Method Room Air Room Air BMI result Body Mass Index 25.7 Labs Results: 02/27/22 15:11 02/28/22 08:22 Medications Medications Current Medications Acetaminophen/Butalbital/Caffeine (Butalb/Acetamin/Caff 50/325/40 Tablet) 1 tab PO DAILY PRN PRN Reason: headache Al Hydroxide/Mg Hydroxide (Magnesium Hydrox/Alum Hydrox 30 Ml Oral.Susp) 30 ml PO Q6H PRN PRN Reason: Heartburn/Nausea Clonidine HCl (Clonidine Hcl 0.1 Mg Tablet) 0.05 mg PO BID PRN; Protocol PRN Reason: hyperarousal Clonidine HCl (Clonidine Hcl 0.1 Mg Tablet) 0.1 mg PO BEDTIME [facility]; Protocol Last Admin: 03/07/22 20:22 Dose: 0.1 mg Fluoxetine HCl (Fluoxetine Hcl 20 Mg Capsule) 20 mg PO DAILY [facility] Last Admin: 03/08/22 08:44 Dose: 20 mg Guaifenesin/Dextromethorphan (Guaifenesin Dm 600/30 1 Tab Tab.Er.12h) 2 tab PO BID PRN PRN Reason: congestion Last Admin: 03/02/22 21:17 Dose: 2 tab Hydroxyzine HCl (Hydroxyzine Hcl 50 Mg Tablet) 50 mg PO Q6H PRN PRN Reason: Anxiety Ibuprofen (Ibuprofen 600 Mg Tablet) 600 mg PO Q6H PRN PRN Reason: mild pain/headache Last Admin: 03/08/22 08:48 Dose: 600 mg Magnesium Hydroxide (Milk Of Magnesia 30 Ml Oral.Susp) 30 ml PO DAILY PRN PRN Reason: Constipation Methadone HCl (Methadone Hcl 20 Mg/2 Ml Oral.Conc) 70 mg PO DAILY [facility] Last Admin: 03/08/22 08:44 Dose: 70 mg Mirtazapine (Mirtazapine 15 Mg Tablet) 15 mg PO BEDTIME [facility] Last Admin: 03/07/22 20:23 Dose: 15 mg Nicotine (Nicotine 21 Mg Patch.Td24) 21 mg TRANSDERMA DAILY PRN PRN Reason: smoking cessation Olanzapine (Olanzapine 10 Mg Tablet) 10 mg PO BEDTIME [facility] Last Admin: 03/07/22 20:23 Dose: 10 mg Omeprazole (Omeprazole 20 Mg Capsule.Dr) 20 mg PO DAILY@0630 [facility] Last Admin: 03/08/22 08:45 Dose: 20 mg Polyethylene Glycol (Polyethylene Glycol 3350 17 Gm Powd.Pack) 17 gm PO BID [facility] Last Admin: 03/08/22 08:45 Dose: Not Given Quetiapine Fumarate (Quetiapine Fumarate 50 Mg Tablet) 50 mg PO Q6H PRN PRN Reason: agitation, anxiety Sodium Chloride (Sodium Chloride 0.65 % Nasal 44 Ml Sprbtl) 1 spray NOSTRIL-B Q1H PRN PRN Reason: dry nares Last Admin: 03/06/22 22:44 Dose: 1 spray Trazodone HCl (Trazodone Hcl 50 Mg Tablet) 50 mg PO BEDTIME PRN PRN Reason: Insomnia Vitamin D (Cholecalciferol (Vitamin D3) 25 Mcg Tablet) 50 mcg PO DAILY [facility] Last Admin: 03/08/22 08:44 Dose: 50 mcg Allergies Allergies Allergy/AdvReac Type Severity Reaction Status Date / Time No Known Allergies Allergy Verified 01/17/22 11:39 [No Known Allergies*] Assessment & Plan Assessment & Plan (1) Schizoaffective disorder, depressive type: Status: Acute Code(s): F25.1 - Schizoaffective disorder, depressive type (2) Cocaine use disorder: Status: Acute Code(s): F14.10 - Cocaine abuse, uncomplicated (3) Opioid use disorder, moderate, dependence: Status: Acute Code(s): F11.20 - Opioid dependence, uncomplicated Assessment and Plan: * methadone increase to 70mg daily starting 03/01/2022 * additional increases to occur at OTP Destiney Gar is a 41 y.o. male who carries a dx of MDD with psychotic features (changed to Schizoaffective, depressive type), opioid use disorder, and cocaine use disorder. He presented to [facility] on 02/25/22 due to HI towards an unknown person, SI, and increased depression. Utox was positive for opiate, fentanyl, cocaine, and cannabis. He reports using methadone 65 mg that he obtains from the street. Per crisis eval, pt endorsed command AH, voices tell him everyday that nobody cares. Says he uses illicit substances to try to drown out the voices. No alcohol abuse. He was administered methadone 60 mg in the ED setting. Pt reports past benefit on seroquel for sx of anxiety, insomnia, will start 50 mg Q6H PRN. Will order addiction consult, as pt would like to increase his methadone dose. Will increase to 65 mg for tomorrow AM and evaluate for benefit. Reviewed EKG, no prolonged QTc. 02/28 patient remains depressed; he has chronic SI but children are strong protective factor and he denies any active thoughts, intention or plans.? He continues to have problematic auditory hallucinations.? However he says he only takes his medications when he remembers and therefore it remains very possible that current dose could be effective if taken consistently.? Patient carries a diagnosis of MDD with psychotic features.? He says he has had auditory hallucinations since he was a child; will try to rule out schizoaffective disorder.? Patient agrees that substance abuse, while taken to ameliorate problematic auditory hallucinations, remains an obstacle to treatment and he like a treatment program post discharge 03/01 not as depressed, still has AH but this is a little better; will increase mirtazapine for depression 03/02 patient's mood is so-so. He agrees to increased mirtazapine. He continues to wake up feeling startled throughout the night and agrees to trial of clonidine. Auditory hallucinations are little better so will leave Zyprexa at current dose. Patient denies any SI. Patient continues to want to get in to [facility] 03/03 patient reports symptoms are much better; no SI; sleeping better with clonidine; auditory hallucinations remain however they are less frequent and much quieter. Discussed diagnosis of schizoaffective disorder as patient has AH throughout his life including during times when he is not depressed. Clinical Documentation Consultant and patient also discussed his work history; he says that he frequently gets fired from jobs; he explains how he finds it difficult to concentrate or remember things secondary to being internally preoccupied. Clinical Documentation Consultant agrees that patient's diagnosis and subsequent symptoms are a significant barrier to to patient being successfully employed. 03/07 patient remains stable, with improved mood, no SI and significantly reduced AH. He very much wants to go to [facility] program and is worried that if he does not go straight to the program from the unit, he will relapse. Team discussed and agreed that patient is highly vulnerable to relapse and are making efforts to get and into a program hector. Patient complains of chronic intermittent headache that sounds like a migraine with possible prodrome of flashing lights colors. PLAN: Q15 min safety checks, CV try Butalb/Acetamin/Caff 50/325/40 Tablet for headache, possible migraine Continue Clonidine 0.1mg qhs for periodic waking up, possibly due to nightmares/trauma Continue mirtazapine 15mg for continued depression(home med; increased) started on seroquel? 50 mg Q6H PRN, anxiety Methadone was increase to 65 mg Addiction consult for Methadone continue olanzapine 10mg qhs (home med) continue fluoxetine 20mg (home med) SW pursuing CSS/substance abuse tx Monitor response to medications. Monitor for safety in the milieu. Discharge on stabilization. Patient seen. Chart reviewed. Discussed with team. Obtain collateral contact info?as needed I spent minutes with the patient and/or on the patient floor today, greater than?50% of which was spent counseling/coordinating care. Patient educated on: diagnosis, substance abuse and medical condition Informed Consent: understands Reason for contiued inpatient stay Substantial Risk for: stable for discharge
[2022-03-07 16:45] VITALS: BP 126/83; PULSE 95; RESP 20; TEMP 36.4; O2SAT 95
[2022-03-07] MEDS: Butalb/Acetamin/Caff 50/325/40 TABLET 1 TAB PO (18:27)
[2022-03-07] MEDS: cloNIDine HCL 0.1 MG TABLET PO (20:22)
[2022-03-07] MEDS: Mirtazapine 15 MG TABLET PO (20:23)
[2022-03-07] MEDS: OLANZapine 10 MG TABLET PO (20:23)
[2022-03-07] MEDS: polyethylene glycoL 3350 17 GM POWD.PACK PO (20:24)
[2022-03-08 06:30] VITALS: BP 131/64; PULSE 57; RESP 18; TEMP 35.8; O2SAT 95
[2022-03-08] MEDS: FLUoxetine HCl 20 MG CAPSULE PO (08:44)
[2022-03-08] MEDS: methADONE HCl 20 MG/2 ML ORAL.CONC 70 MG PO (08:44)
[2022-03-08] MEDS: Cholecalciferol (Vitamin D3) 25 MCG TABLET 50 MCG PO (08:44)
[2022-03-08] MEDS: Omeprazole 20 MG CAPSULE.DR PO (08:45)
[2022-03-08] MEDS: Ibuprofen 600 MG TABLET PO (08:48)
[2022-03-08] MEDS: Butalb/Acetamin/Caff 50/325/40 TABLET 1 TAB PO (14:13)
--- NOTE | 2022-03-08 15:14 | HO.PSYCHPN ---
Subjective Subjective Date of Service: 03/08/22 Reason For Visit: crisis Interim History: Patient reports that headache is much better with Fioricet yesterday. He still has a lingering headache and sign writer hand encourage is patient to take Fioricet 1 more time to eliminate. Patient reports continued auditory hallucinations and although they are much better than on admission there are bothersome and he would like Zyprexa to be increased to see if he can mitigate this symptom; sign writer hand reviewed risks/side effects of this medication including increased risk with higher dosing, which patient understands and wants to proceed with the increase. Denies any SI is mood remains better. He is hopeful about going to a substance abuse program. Mental Status Exam Mental Status Exam Narrative: Pt is alert and oriented; behavior is cooperative, calm; patient is not in distress; dressed in casual attire with adequate hygiene; mood is described as good and affect congruent; not blunted; eye contact appropriate; Speech is normal rate, volume and prosody and not pressured; no psychomotor agitation/retardation present; thought process is organized and goal directed; Thought content is on tx; otherwise pertinent to relevant topics and without any delusional content, paranoid ideations or grandiosity; Denies SI; Denies HI; endorses AH still bothersome, but much less frequent and quieter; Patients insight and judgment are fair. Diagnostics Vital Signs (24Hr): Vital Signs - 24 hr 03/07/22 16:45 03/08/22 06:30 Temperature 97.6 F 96.5 F L Pulse Rate 95 57 Respiratory Rate 20 18 Blood Pressure 126/83 131/64 Pulse Oximetry 95 95 Oxygen Delivery Method Room Air Room Air BMI result Body Mass Index 25.7 Labs Results: 02/27/22 15:11 02/28/22 08:22 Medications Medications Current Medications Acetaminophen/Butalbital/Caffeine (Butalb/Acetamin/Caff 50/325/40 Tablet) 1 tab PO DAILY PRN PRN Reason: headache Last Admin: 03/08/22 14:13 Dose: 1 tab Al Hydroxide/Mg Hydroxide (Magnesium Hydrox/Alum Hydrox 30 Ml Oral.Susp) 30 ml PO Q6H PRN PRN Reason: Heartburn/Nausea Clonidine HCl (Clonidine Hcl 0.1 Mg Tablet) 0.05 mg PO BID PRN; Protocol PRN Reason: hyperarousal Clonidine HCl (Clonidine Hcl 0.1 Mg Tablet) 0.1 mg PO BEDTIME [facility]; Protocol Last Admin: 03/07/22 20:22 Dose: 0.1 mg Fluoxetine HCl (Fluoxetine Hcl 20 Mg Capsule) 20 mg PO DAILY [facility] Last Admin: 03/08/22 08:44 Dose: 20 mg Guaifenesin/Dextromethorphan (Guaifenesin Dm 600/30 1 Tab Tab.Er.12h) 2 tab PO BID PRN PRN Reason: congestion Last Admin: 03/02/22 21:17 Dose: 2 tab Hydroxyzine HCl (Hydroxyzine Hcl 50 Mg Tablet) 50 mg PO Q6H PRN PRN Reason: Anxiety Ibuprofen (Ibuprofen 600 Mg Tablet) 600 mg PO Q6H PRN PRN Reason: mild pain/headache Last Admin: 03/08/22 08:48 Dose: 600 mg Magnesium Hydroxide (Milk Of Magnesia 30 Ml Oral.Susp) 30 ml PO DAILY PRN PRN Reason: Constipation Methadone HCl (Methadone Hcl 20 Mg/2 Ml Oral.Conc) 70 mg PO DAILY [facility] Last Admin: 03/08/22 08:44 Dose: 70 mg Mirtazapine (Mirtazapine 15 Mg Tablet) 15 mg PO BEDTIME [facility] Last Admin: 03/07/22 20:23 Dose: 15 mg Nicotine (Nicotine 21 Mg Patch.Td24) 21 mg TRANSDERMA DAILY PRN PRN Reason: smoking cessation Olanzapine (Olanzapine 7.5 Mg Tablet) 15 mg PO BEDTIME [facility] Omeprazole (Omeprazole 20 Mg Capsule.Dr) 20 mg PO DAILY@0630 [facility] Last Admin: 03/08/22 08:45 Dose: 20 mg Polyethylene Glycol (Polyethylene Glycol 3350 17 Gm Powd.Pack) 17 gm PO BID [facility] Last Admin: 03/08/22 08:45 Dose: Not Given Quetiapine Fumarate (Quetiapine Fumarate 50 Mg Tablet) 50 mg PO Q6H PRN PRN Reason: agitation, anxiety Sodium Chloride (Sodium Chloride 0.65 % Nasal 44 Ml Sprbtl) 1 spray NOSTRIL-B Q1H PRN PRN Reason: dry nares Last Admin: 03/06/22 22:44 Dose: 1 spray Trazodone HCl (Trazodone Hcl 50 Mg Tablet) 50 mg PO BEDTIME PRN PRN Reason: Insomnia Vitamin D (Cholecalciferol (Vitamin D3) 25 Mcg Tablet) 50 mcg PO DAILY [facility] Last Admin: 03/08/22 08:44 Dose: 50 mcg Allergies Allergies Allergy/AdvReac Type Severity Reaction Status Date / Time No Known Allergies Allergy Verified 01/17/22 11:39 [No Known Allergies*] Assessment & Plan Assessment & Plan (1) Schizoaffective disorder, depressive type: Status: Acute Code(s): F25.1 - Schizoaffective disorder, depressive type (2) Cocaine use disorder: Status: Acute Code(s): F14.10 - Cocaine abuse, uncomplicated (3) Opioid use disorder, moderate, dependence: Status: Acute Code(s): F11.20 - Opioid dependence, uncomplicated Assessment and Plan: methadone increase to 70mg daily starting 03/01/2022 additional increases to occur at OTP Destiney Gar is a 41 y.o. male who carries a dx of MDD with psychotic features (changed to Schizoaffective, depressive type), opioid use disorder, and cocaine use disorder. He presented to [facility] on 02/25/22 due to HI towards an unknown person, SI, and increased depression. Utox was positive for opiate, fentanyl, cocaine, and cannabis. He reports using methadone 65 mg that he obtains from the street. Per crisis eval, pt endorsed command AH, voices tell him everyday that nobody cares. Says he uses illicit substances to try to drown out the voices. No alcohol abuse. He was administered methadone 60 mg in the ED setting. Pt reports past benefit on seroquel for sx of anxiety, insomnia, will start 50 mg Q6H PRN. Will order addiction consult, as pt would like to increase his methadone dose. Will increase to 65 mg for tomorrow AM and evaluate for benefit. Reviewed EKG, no prolonged QTc. 02/28 patient remains depressed; he has chronic SI but children are strong protective factor and he denies any active thoughts, intention or plans.? He continues to have problematic auditory hallucinations.? However he says he only takes his medications when he remembers and therefore it remains very possible that current dose could be effective if taken consistently.? Patient carries a diagnosis of MDD with psychotic features.? He says he has had auditory hallucinations since he was a child; will try to rule out schizoaffective disorder.? Patient agrees that substance abuse, while taken to ameliorate problematic auditory hallucinations, remains an obstacle to treatment and he like a treatment program post discharge 03/01 not as depressed, still has AH but this is a little better; will increase mirtazapine for depression 03/02 patient's mood is so-so. He agrees to increased mirtazapine. He continues to wake up feeling startled throughout the night and agrees to trial of clonidine. Auditory hallucinations are little better so will leave Zyprexa at current dose. Patient denies any SI. Patient continues to want to get in to [facility] 03/03 patient reports symptoms are much better; no SI; sleeping better with clonidine; auditory hallucinations remain however they are less frequent and much quieter. Discussed diagnosis of schizoaffective disorder as patient has AH throughout his life including during times when he is not depressed. Accountant Controller and patient also discussed his work history; he says that he frequently gets fired from jobs; he explains how he finds it difficult to concentrate or remember things secondary to being internally preoccupied. Accountant Controller agrees that patient's diagnosis and subsequent symptoms are a significant barrier to to patient being successfully employed. 03/07 patient remains stable, with improved mood, no SI and significantly reduced AH. He very much wants to go to CSS program and is worried that if he does not go straight to the program from the unit, he will relapse. Team discussed and agreed that patient is highly vulnerable to relapse and are making efforts to get and into a program hector. Patient complains of chronic intermittent headache that sounds like a migraine with possible prodrome of flashing lights colors. 03/08 seems to meet criteria for migraine headache, possibly with aura which resolving with Fioricet; wants to increase Zyprexa for continued AH; otherwise mood is significantly better, pressure remains abated and no SI. Patient eager for CSS; waiting for acceptance to program, patient is not in imminent risk of harm to self or others and appropriate for discharge. Migraine headache possibly with aura Chronic Can last for several days Moderate to severe pain intensity; causes avoidance of physical activity Photophobia during headache Seems to be some visual aura symptoms of lights and colors; not sure about other or criteria PLAN: Q15 min safety checks, CV PRN Butalb/Acetamin/Caff 50/325/40 Tablet for headache migraine Continue Clonidine 0.1mg qhs for periodic waking up, possibly due to nightmares/trauma Continue mirtazapine 15mg for continued depression(home med; increased) started on seroquel? 50 mg Q6H PRN, anxiety Methadone was increase to 65 mg Addiction consult for Methadone INCREASE TO olanzapine 15mg qhs (home med) FOR CONTINUED AH continue fluoxetine 20mg (home med) SW pursuing CSS/substance abuse tx Monitor response to medications. Monitor for safety in the milieu. Discharge on stabilization. Patient seen. Chart reviewed. Discussed with team. Obtain collateral contact info?as needed I spent minutes with the patient and/or on the patient floor today, greater than?50% of which was spent counseling/coordinating care. Patient educated on: diagnosis, medication risk/benefits, substance abuse and medical condition Informed Consent: understands Reason for contiued inpatient stay Substantial Risk for: stable for discharge
[2022-03-08 21:55] VITALS: BP 144/68; PULSE 77; TEMP 37.1; O2SAT 98
[2022-03-08] MEDS: cloNIDine HCL 0.1 MG TABLET PO (21:56)
[2022-03-08] MEDS: Mirtazapine 15 MG TABLET PO (21:57)
[2022-03-08] MEDS: OLANZapine 7.5 MG TABLET 15 MG PO (21:57)
[2022-03-09 06:50] VITALS: BP 128/66; PULSE 66; RESP 18; TEMP 36.7; O2SAT 97
[2022-03-09] MEDS: Cholecalciferol (Vitamin D3) 25 MCG TABLET 50 MCG PO (08:24)
[2022-03-09] MEDS: methADONE HCl 20 MG/2 ML ORAL.CONC 70 MG PO (08:24)
[2022-03-09] MEDS: Omeprazole 20 MG CAPSULE.DR PO (08:25)
[2022-03-09] MEDS: FLUoxetine HCl 20 MG CAPSULE PO (08:25)
[2022-03-09 08:48] VITALS: BMI 29.5
--- NOTE | 2022-03-09 09:36 | P.PNPSI_ITS ---
Subjective Subjective Date of Service: 03/09/22 Reason For Visit: crisis Interim History: Patient reports that he got very anxious last night and that auditory hallucinations worsened and were problematic last night, giving him trouble sleeping and making him anxious about discharging today, not entirely sure if he would remains stable as he has been thus far. He is not sure exactly what triggered it but thinks that part of it was that last time he was at this program and had a crisis he felt he was discharged prematurely and that he was not given enough time to calm down. He said this memory made him anxious. However he reiterates that he is eager to go and get treatment. Patient says that he is doing better now and that auditory hallucinations are back down to a low level. He is hopeful that the increased Zyprexa will eliminate them. He denies depression and denies any SI and remains optimistic. He is grateful that he can remain on the unit to make sure that he remains stable. Patient reports that headache is fully eliminated. Mental Status Exam Mental Status Exam Narrative: Pt is alert and oriented; behavior is cooperative, calm; patient is not in distress; dressed in casual attire with adequate hygiene; mood is described as anxious and affect congruent; eye contact appropriate; Speech is normal rate, volume and prosody and not pressured; no psychomotor agitation/retardation present; thought process is organized and goal directed; Thought content is on tx; otherwise pertinent to relevant topics and without any delusional content, paranoid ideations or grandiosity; Denies SI; Denies HI; endorses AH still bothersome, but much less frequent and quieter than on admission; Patients insight and judgment are fair. Diagnostics Vital Signs (24Hr): Vital Signs - 24 hr 03/08/22 21:55 03/09/22 06:50 Temperature 98.8 F 98.0 F Pulse Rate 77 66 Respiratory Rate 18 Blood Pressure 144/68 H 128/66 Pulse Oximetry 98 97 Oxygen Delivery Method Room Air Room Air BMI result Body Mass Index 29.5 Labs Results: 02/27/22 15:11 02/28/22 08:22 Medications Medications Current Medications Acetaminophen/Butalbital/Caffeine (Butalb/Acetamin/Caff 50/325/40 Tablet) 1 tab PO DAILY PRN PRN Reason: headache Last Admin: 03/08/22 14:13 Dose: 1 tab Al Hydroxide/Mg Hydroxide (Magnesium Hydrox/Alum Hydrox 30 Ml Oral.Susp) 30 ml PO Q6H PRN PRN Reason: Heartburn/Nausea Clonidine HCl (Clonidine Hcl 0.1 Mg Tablet) 0.05 mg PO BID PRN; Protocol PRN Reason: hyperarousal Clonidine HCl (Clonidine Hcl 0.1 Mg Tablet) 0.1 mg PO BEDTIME DANNIE; Protocol Last Admin: 03/08/22 21:56 Dose: 0.1 mg Fluoxetine HCl (Fluoxetine Hcl 20 Mg Capsule) 20 mg PO DAILY [facility] Last Admin: 03/09/22 08:25 Dose: 20 mg Guaifenesin/Dextromethorphan (Guaifenesin Dm 600/30 1 Tab Tab.Er.12h) 2 tab PO BID PRN PRN Reason: congestion Last Admin: 03/02/22 21:17 Dose: 2 tab Hydroxyzine HCl (Hydroxyzine Hcl 50 Mg Tablet) 50 mg PO Q6H PRN PRN Reason: Anxiety Ibuprofen (Ibuprofen 600 Mg Tablet) 600 mg PO Q6H PRN PRN Reason: mild pain/headache Last Admin: 03/08/22 08:48 Dose: 600 mg Magnesium Hydroxide (Milk Of Magnesia 30 Ml Oral.Susp) 30 ml PO DAILY PRN PRN Reason: Constipation Methadone HCl (Methadone Hcl 20 Mg/2 Ml Oral.Conc) 70 mg PO DAILY [facility] Last Admin: 03/09/22 08:24 Dose: 70 mg Mirtazapine (Mirtazapine 15 Mg Tablet) 15 mg PO BEDTIME DANNIE Last Admin: 03/08/22 21:57 Dose: 15 mg Nicotine (Nicotine 21 Mg Patch.Td24) 21 mg TRANSDERMA DAILY PRN PRN Reason: smoking cessation Olanzapine (Olanzapine 7.5 Mg Tablet) 15 mg PO BEDTIME [facility] Last Admin: 03/08/22 21:57 Dose: 15 mg Omeprazole (Omeprazole 20 Mg Capsule.Dr) 20 mg PO DAILY@0630 [facility] Last Admin: 03/09/22 08:25 Dose: 20 mg Polyethylene Glycol (Polyethylene Glycol 3350 17 Gm Powd.Pack) 17 gm PO BID [facility] Last Admin: 03/09/22 08:25 Dose: Not Given Quetiapine Fumarate (Quetiapine Fumarate 50 Mg Tablet) 50 mg PO Q6H PRN PRN Reason: agitation, anxiety Sodium Chloride (Sodium Chloride 0.65 % Nasal 44 Ml Sprbtl) 1 spray NOSTRIL-B Q1H PRN PRN Reason: dry nares Last Admin: 03/06/22 22:44 Dose: 1 spray Trazodone HCl (Trazodone Hcl 50 Mg Tablet) 50 mg PO BEDTIME PRN PRN Reason: Insomnia Vitamin D (Cholecalciferol (Vitamin D3) 25 Mcg Tablet) 50 mcg PO DAILY DANNIE Last Admin: 03/09/22 08:24 Dose: 50 mcg Allergies Allergies Allergy/AdvReac Type Severity Reaction Status Date / Time No Known Allergies Allergy Verified 01/17/22 11:39 [No Known Allergies*] Assessment & Plan Assessment & Plan (1) Schizoaffective disorder, depressive type: Status: Acute Code(s): F25.1 - Schizoaffective disorder, depressive type (2) Cocaine use disorder: Status: Acute Code(s): F14.10 - Cocaine abuse, uncomplicated (3) Opioid use disorder, moderate, dependence: Status: Acute Code(s): F11.20 - Opioid dependence, uncomplicated Assessment and Plan: * methadone increase to 70mg daily starting 03/01/2022 * additional increases to occur at OTP Destiney Gar is a 41 y.o. male who carries a dx of MDD with psychotic features (changed to Schizoaffective, depressive type), opioid use disorder, and cocaine use disorder. He presented to [facility] ED on 02/25/22 due to HI towards an unknown person, SI, and increased depression. Utox was positive for opiate, fentanyl, cocaine, and cannabis. He reports using methadone 65 mg that he obtains from the street. Per crisis eval, pt endorsed command AH, voices tell him everyday that nobody cares. Says he uses illicit substances to try to drown out the voices. No alcohol abuse. He was administered methadone 60 mg in the ED setting. Pt reports past benefit on seroquel for sx of anxiety, insomnia, will start 50 mg Q6H PRN. Will order addiction consult, as pt would like to increase his methadone dose. Will increase to 65 mg for tomorrow AM and evaluate for benefit. Reviewed EKG, no prolonged QTc. 02/28 patient remains depressed; he has chronic SI but children are strong pr otective factor and he denies any active thoughts, intention or plans.? He continues to have problematic auditory hallucinations.? However he says he only takes his medications when he remembers and therefore it remains very possible that current dose could be effective if taken consistently.? Patient carries a diagnosis of MDD with psychotic features.? He says he has had auditory hallucinations since he was a child; will try to rule out schizoaffective disorder.? Patient agrees that substance abuse, while taken to ameliorate problematic auditory hallucinations, remains an obstacle to treatment and he like a treatment program post discharge 03/01 not as depressed, still has AH but this is a little better; will increase mirtazapine for depression 03/02 patient's mood is so-so. He agrees to increased mirtazapine. He continues to wake up feeling startled throughout the night and agrees to trial of clonidine. Auditory hallucinations are little better so will leave Zyprexa at current dose. Patient denies any SI. Patient continues to want to get in to CSS 03/03 patient reports symptoms are much better; no SI; sleeping better with clonidine; auditory hallucinations remain however they are less frequent and much quieter. Discussed diagnosis of schizoaffective disorder as patient has AH throughout his life including during times when he is not depressed. 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 Washer Blanket agrees that patient's diagnosis and subsequent symptoms are a significant barrier to to patient being successfully employed. 03/07 patient remains stable, with improved mood, no SI and significantly reduced AH. He very much wants to go to CSS program and is worried that if he does not go straight to the program from the unit, he will relapse. Team discussed and agreed that patient is highly vulnerable to relapse and are making efforts to get and into a program hector. Patient complains of chronic intermittent headache that sounds like a migraine with possible prodrome of flashing lights colors. 03/08 seems to meet criteria for migraine headache, possibly with aura which resolving with Fioricet; wants to increase Zyprexa for continued AH; otherwise mood is significantly better, pressure remains abated and no SI. Patient eager for CSS; waiting for acceptance to program, patient is not in imminent risk of harm to self or others and appropriate for discharge. 03/09 patient was triggered last night, became very anxious and had a significant increase in auditory hallucinations; he is feeling better today but was very anxious about discharge today to the program, not sure that he would remain stable given last night's event; he is asking for another couple days to make sure. Washer Blanket agrees. No SI Migraine headache possibly with aura Chronic Can last for several days Moderate to severe pain intensity; causes avoidance of physical activity Photophobia during headache Seems to be some visual aura symptoms of lights and colors; not sure about other or criteria PLAN: Q15 min safety checks, CV PRN Butalb/Acetamin/Caff 50/325/40 Tablet for headache migraine Continue Clonidine 0.1mg qhs for periodic waking up, possibly due to nightmares/trauma Continue mirtazapine 15mg for continued depression(home med; increased) started on seroquel? 50 mg Q6H PRN, anxiety Methadone was increase to 65 mg Addiction consult for Methadone INCREASEd TO olanzapine 15mg qhs (home med) FOR CONTINUED AH continue fluoxetine 20mg (home med) SW pursuing CSS/substance abuse tx Monitor response to medications. Monitor for safety in the milieu. Discharge on stabilization. Patient seen. Chart reviewed. Discussed with team. Obtain collateral contact info?as needed I spent minutes with the patient and/or on the patient floor today, greater than?50% of which was spent counseling/coordinating care. Patient educated on: medication risk/benefits and therapeutic strategies Informed Consent: understands Reason for contiued inpatient stay Substantial Risk for: rapid decompensation
--- NOTE | 2022-03-09 09:38 | PM.PSYDC ---
DS: Providers Provider Date of Service: 03/13/22 Date of admission: 02/27/22 16:40 Date of discharge: 03/13/22 Primary care physician: Unknown Physician Attending physician on admission: Missael Cervantes Attending physician on discharge: Missael Cervantes DS: Diagnosis Discharge Diagnosis (1) Schizoaffective disorder, depressive type: Status: Acute (2) Cocaine use disorder: Status: Acute (3) Opioid use disorder, moderate, dependence: Status: Acute DS: Medications Discharge Medications Home Medications: Previous Rx's Medication Instructions Recorded [id number] 1 tab PO DAILY PRN headache 30 03/09/22 50 mg-325 mg-40 mg tablet days #4 tabs cholecalciferol (vitamin D3) 50 50 mcg PO DAILY 30 days #30 caps 03/09/22 mcg (2,000 unit) capsule clonidine HCl 0.1 mg tablet 0.1 mg PO BEDTIME 30 days #30 tabs 03/09/22 fluoxetine 20 mg capsule 20 mg PO QAM 30 days #30 caps 03/09/22 hydroxyzine HCl 50 mg tablet 50 mg PO BID PRN Anxiety 30 days 03/09/22 #60 tabs ibuprofen 600 mg tablet 600 mg PO Q6H PRN mild 03/09/22 pain/headache #0 tabs methadone 10 mg/mL oral 70 mg (7 mL) PO DAILY #0 mL 03/09/22 concentrate (Methadose) mirtazapine 15 mg tablet 15 mg PO BEDTIME 30 days #30 tabs 03/09/22 olanzapine 15 mg tablet 15 mg PO BEDTIME 30 days #30 tabs 03/09/22 omeprazole 20 mg capsule,delayed 20 mg PO DAILY 30 days #30 caps 03/09/22 release polyethylene glycol 3350 17 gram 17 g PO BID 30 days #30 ea 03/09/22 oral powder packet sodium chloride 0.65 % nasal spray 1 spray intranasal Q1H PRN dry 03/09/22 aerosol (Deep Sea Nasal) nares 30 days #44 mL Mental Status Exam Mental Status Exam Narrative: Pt is alert and oriented; behavior is cooperative, calm; patient is not in distress; dressed in casual attire with adequate hygiene; mood is described as ok and affect congruent; eye contact appropriate; Speech is normal rate, volume and prosody and not pressured; no psychomotor agitation/retardation present; thought process is organized and goal directed; Thought content is on tx; otherwise pertinent to relevant topics and without any delusional content, paranoid ideations or grandiosity; Denies SI; Denies HI; endorses AH still but says only a little bit. Patients insight and judgment are fair. DS: Summary Hospital Course Hospital Course: Cong is a 41 y.o. male who carries a dx of MDD with psychotic features (changed to Schizoaffective, depressive type), opioid use disorder, and cocaine use disorder. He [place] [facility] [place]22 due to HI towards an unknown person, SI, and increased depression. Utox was positive for opiate, fentanyl, cocaine, and cannabis. He reports using methadone 65 mg that he obtains from the street. Per crisis eval, pt endorsed command AH, voices tell him everyday that nobody cares. Says he uses illicit substances to try to drown out the voices. No alcohol abuse. He was administered methadone 60 mg in the ED setting. Pt reports past benefit on seroquel for sx of anxiety, insomnia, will start 50 mg Q6H PRN. Will order addiction consult, as pt would like to increase his methadone dose. Will increase to 65 mg for tomorrow AM and evaluate for benefit. Reviewed EKG, QTc wnl. Hosptial Course: 02/28 patient remains depressed; he has chronic SI but children are strong protective factor and he denies any active thoughts, intention or plans.? He continues to have problematic auditory hallucinations.? However he says he only takes his medications when he remembers and therefore it remains very possible that current dose could be effective if taken consistently.? Patient carries a diagnosis of MDD with psychotic features.? He says he has had auditory hallucinations since he was a child; will try to rule out schizoaffective disorder.? Patient agrees that substance abuse, while taken to ameliorate problematic auditory hallucinations, remains an obstacle to treatment and he like a treatment program post discharge 03/01 not as depressed, still has AH but this is a little better; will increase mirtazapine for depression 03/02? patient's mood is so-so. ? He agrees to increased mirtazapine.? He continues to wake up feeling startled throughout the night and agrees to trial of clonidine.? Auditory hallucinations are little better so will leave Zyprexa at current dose.? Patient denies any SI.? Patient continues to want to get in to CSS 03/03 patient reports symptoms are much better; no SI; sleeping better with clonidine; auditory hallucinations remain however they are less frequent and much quieter.? Discussed diagnosis of schizoaffective disorder as patient has AH throughout his life including during times when he is not depressed.? 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 03/07 patient remains stable, with improved mood, no SI and significantly reduced AH.? He very much wants to go to CSS program and is worried that if he does not go straight to the program from the unit, he will relapse.? Team discussed and agreed that patient is highly vulnerable to relapse and are making efforts to get and into a program hector.? Patient complains of chronic intermittent headache that sounds like a migraine with possible prodrome of flashing lights colors. 03/08 seems to meet criteria for migraine headache, possibly with aura which resolving with Fioricet; wants to increase Zyprexa for continued AH; otherwise mood is significantly better, pressure remains abated and no SI.? Patient eager for CSS; waiting for acceptance to program, patient is not in imminent risk of harm to self or others and appropriate for discharge. 03/09 patient was triggered last night, became very anxious and had a significant increase in auditory hallucinations; he is feeling better today but was very anxious about discharge today to the program, not sure that he would remain stable given last night's event; he is asking for another couple days to make sure.? Salt Plant Operator agrees.? No SI 03/10 increase zyprexa to 20 mg QHS for AH, mood, anxiety and will monitor for benefit 03/13 Patient remains stable; has auditory hallucinations but says they are only a little bit and not bothersome; no SI, depression remains better.? He says he is looking forward to discharging tomorrow to substance abuse program.? Salt Plant Operator asked to use anxious about and he said no.? Patient discharging to a safe, structured environment for further treatment.? He is not in imminent risk for harm to self or others and his request for discharge honored. dx with Migraine headache (possibly with aura); added PRN Butalb/Acetamin/Caff 50/325/40 Time spent discussing smoking cessation with patient: 3 to 10 minutes Status at Discharge Functional status at discharge: independent ambulation Overall status at discharge: patient is back to baseline Time Spent with Patient Time attestation: Total time spent providing and/or coordinating discharge services: Time spent: Less than 30 minutes Discharge Plan Discharge Patient Disposition: Home, Self-Care Discharge Diagnosis: Schizoaffective disorder, depressed type Referrals: Therapy Intake: Veronica [facility]) [Other] - 03/17/22 1:00 pm (Esta es elijah reza de telesalud. [place] llamara [facility] para hablar contigo) [facility] ([facility]) [Other] - 03/14/22 10:30 am (Usted flannery sido derivado al [facility] para un tratamiento continuo por uso de sustancias) [facility] (dual-diagnosis) [Other] - 1 Week (Usted flannery sido derivado para un tratamiento continuo por uso de sustancias. Est? en la lista de espera.) [facility] [Other] - 1 Week Discharge Medications: New clonidine HCl 0.1 mg Tablet 0.1 mg PO BEDTIME 30 Days Qty: 30 1RF Protocol: Hold for SBP< HOLD for SBP < : 90 mirtazapine 15 mg Tablet 15 mg PO BEDTIME 30 Days Qty: 30 1RF [id number] 50-325-40 mg Tablet 1 tab PO DAILY PRN (Reason: headache) 30 Days Qty: 4 0RF methadone [Methadose] 10 mg/mL Concentrate 70 mg PO DAILY Qty: 0 0RF Rx Instructions: Partial Fill upon patient request. Deep Sea Nasal 0.65 % Aerosol,[place] 1 spray intranasal Q1H PRN (Reason: dry nares) 30 Days Qty: 44 1RF ibuprofen 600 mg Tablet 600 mg PO Q6H PRN (Reason: mild pain/headache) Qty: 0 0RF polyethylene glycol 3350 17 gram Powder In Packet 17 g PO BID 30 Days Qty: 30 1RF Rx Instructions: hold for loose stool olanzapine 10 mg Tablet 20 mg PO BEDTIME 30 Days Qty: 60 1RF Rx Instructions: Dose increased from 15mg; discontinue script for 15mg Changed hydroxyzine HCl 50 mg tablet 50 mg PO BID PRN (Reason: Anxiety) 30 Days Qty: 60 1RF omeprazole 20 mg capsule,delayed release(DR/EC) 20 mg PO DAILY 30 Days Qty: 30 1RF fluoxetine 20 mg capsule 20 mg PO QAM 30 Days Qty: 30 1RF cholecalciferol (vitamin D3) 50 mcg (2,000 unit) capsule 50 mcg PO DAILY 30 Days Qty: 30 1RF Discontinued olanzapine 10 mg tablet 1 tab PO BEDTIME mirtazapine 7.5 mg tablet 1 tab PO BEDTIME Discharge Orders: Discharge Order (Routine); Ordered 03/14/22 Ordered By: Missael Cervantes Diet: regular diet Activity on Discharge: As tolerated Stand Alone Forms: Patient Portal Discharge page, Community Support Care Plan Goals: Maintain mood and safe behaviors Take medications as prescribed Continue to pursue sobriety Practice coping skills Continue with outpatient providers and reach out to them as needed Health Concerns: Mood stability and behaviors Sobriety Migraine headache Plan of Treatment: Follow up with your PCP, psychiatric provider and other outpatient providers regarding above concerns Take medications as prescribed Assessment: Risk assessment at time of discharge:? Patient was interviewed prior to discharge and found to be fully oriented and without any SI or HI. Patient has insight and demonstrates good judgment in terms of wanting to pursue treatment. Patient is not in imminent risk of harm to self or others and has a safety plan that includes presenting to the closest ER or calling 911 if feeling unsafe.? Patient has been observed closely by nursing and unit staff throughout admission; patient has not engaged in any behaviors that suggest dangerousness to self or others and has demonstrated appropriate behaviors and impulse control
[2022-03-09] MEDS: cloNIDine HCL 0.1 MG TABLET PO (21:13)
[2022-03-09] MEDS: OLANZapine 7.5 MG TABLET 15 MG PO (21:13)
[2022-03-09] MEDS: polyethylene glycoL 3350 17 GM POWD.PACK PO (21:13)
[2022-03-09] MEDS: Mirtazapine 15 MG TABLET PO (21:13)
[2022-03-09 21:19] VITALS: BP 121/80; PULSE 68
[2022-03-10] MEDS: Cholecalciferol (Vitamin D3) 25 MCG TABLET 50 MCG PO (08:58)
[2022-03-10] MEDS: FLUoxetine HCl 20 MG CAPSULE PO (08:58)
[2022-03-10] MEDS: methADONE HCl 20 MG/2 ML ORAL.CONC 70 MG PO (08:58)
[2022-03-10] MEDS: Omeprazole 20 MG CAPSULE.DR PO (08:58)
[2022-03-10 10:32] VITALS: BP 120/64; PULSE 88; RESP 18; TEMP 37.1; O2SAT 98
--- NOTE | 2022-03-10 17:39 | P.PNPSI_ITS ---
Subjective Subjective Date of Service: 03/10/22 Reason For Visit: crisis Subjective Notes: [facility] Warning and Conditional Voluntary Healthcare Proxy: No Guardianship: No Medical Problems Affecting Mental Status: No Interim History: Patient seen and discussed with team. Patient evaluated today with cheese cutter and upon interview he reports he is feeling good, still has a little anxiety and depression. Says the voices are bothering him, saying negative things. Likes his meds but still symptomatic. Sleep is good, getting 6-8 hours. Energy is good. Wants to increase zyprexa. Feels safe.? Medication Compliance: Yes Side effects from medications: No Attending Groups: No Review of Systems Acute medical concerns: No Medical Review of Systems: unchanged Mental Status Exam Mental Status Exam Narrative: Pt is alert and oriented; behavior is cooperative, calm; patient is not in distress; dressed in casual attire with adequate hygiene; mood is described as anxious and depressed, and affect appropriate; eye contact appropriate; Spee ch is normal rate, volume and prosody and not pressured; no psychomotor agitation/retardation present; thought process is organized and goal directed; Thought content is on tx; otherwise pertinent to relevant topics and without any delusional content, paranoid ideations or grandiosity; Denies SI;? Denies HI; endorses AH still bothersome, but much less frequent and quieter than on admission; Patients insight and judgment are fair. Diagnostics Vital Signs (24Hr): Vital Signs - 24 hr 03/09/22 21:19 03/10/22 10:32 Temperature 98.7 F Pulse Rate 68 88 Respiratory Rate 18 Blood Pressure 121/80 120/64 Pulse Oximetry 98 Oxygen Delivery Method Room Air BMI result Body Mass Index 29.5 Labs Results: 02/27/22 15:11 02/28/22 08:22 Medications Medications Current Medications Acetaminophen/Butalbital/Caffeine (Butalb/Acetamin/Caff 50/325/40 Tablet) 1 tab PO DAILY PRN PRN Reason: headache Last Admin: 03/08/22 14:13 Dose: 1 tab Al Hydroxide/Mg Hydroxide (Magnesium Hydrox/Alum Hydrox 30 Ml Oral.Susp) 30 ml PO Q6H PRN PRN Reason: Heartburn/Nausea Clonidine HCl (Clonidine Hcl 0.1 Mg Tablet) 0.05 mg PO BID PRN; Protocol PRN Reason: hyperarousal Clonidine HCl (Clonidine Hcl 0.1 Mg Tablet) 0.1 mg PO BEDTIME [facility]; Protocol Last Admin: 03/09/22 21:13 Dose: 0.1 mg Fluoxetine HCl (Fluoxetine Hcl 20 Mg Capsule) 20 mg PO DAILY [facility] Last Admin: 03/10/22 08:58 Dose: 20 mg Guaifenesin/Dextromethorphan (Guaifenesin Dm 600/30 1 Tab Tab.Er.12h) 2 tab PO BID PRN PRN Reason: congestion Last Admin: 03/02/22 21:17 Dose: 2 tab Hydroxyzine HCl (Hydroxyzine Hcl 50 Mg Tablet) 50 mg PO Q6H PRN PRN Reason: Anxiety Ibuprofen (Ibuprofen 600 Mg Tablet) 600 mg PO Q6H PRN PRN Reason: mild pain/headache Last Admin: 03/08/22 08:48 Dose: 600 mg Magnesium Hydroxide (Milk Of Magnesia 30 Ml Oral.Susp) 30 ml PO DAILY PRN PRN Reason: Constipation Methadone HCl (Methadone Hcl 20 Mg/2 Ml Oral.Conc) 70 mg PO DAILY [facility] Last Admin: 03/10/22 08:58 Dose: 70 mg Mirtazapine (Mirtazapine 15 Mg Tablet) 15 mg PO BEDTIME [facility] Last Admin: 03/09/22 21:13 Dose: 15 mg Nicotine (Nicotine 21 Mg Patch.Td24) 21 mg TRANSDERMA DAILY PRN PRN Reason: smoking cessation Olanzapine (Olanzapine 7.5 Mg Tablet) 15 mg PO BEDTIME [facility] Last Admin: 03/09/22 21:13 Dose: 15 mg Omeprazole (Omeprazole 20 Mg Capsule.Dr) 20 mg PO DAILY@0630 [facility] Last Admin: 03/10/22 08:58 Dose: 20 mg Polyethylene Glycol (Polyethylene Glycol 3350 17 Gm Powd.Pack) 17 gm PO BID [facility] Last Admin: 03/10/22 09:00 Dose: Not Given Quetiapine Fumarate (Quetiapine Fumarate 50 Mg Tablet) 50 mg PO Q6H PRN PRN Reason: agitation, anxiety Sodium Chloride (Sodium Chloride 0.65 % Nasal 44 Ml Sprbtl) 1 spray NOSTRIL-B Q1H PRN PRN Reason: dry nares Last Admin: 03/06/22 22:44 Dose: 1 spray Trazodone HCl (Trazodone Hcl 50 Mg Tablet) 50 mg PO BEDTIME PRN PRN Reason: Insomnia Vitamin D (Cholecalciferol (Vitamin D3) 25 Mcg Tablet) 50 mcg PO DAILY [facility] Last Admin: 03/10/22 08:58 Dose: 50 mcg Allergies Allergies Allergy/AdvReac Type Severity Reaction Status Date / Time No Known Allergies Allergy Verified 01/17/22 11:39 [No Known Allergies*] Assessment & Plan Assessment & Plan (1) Schizoaffective disorder, depressive type: Status: Acute Code(s): F25.1 - Schizoaffective disorder, depressive type (2) Cocaine use disorder: Status: Acute Code(s): F14.10 - Cocaine abuse, uncomplicated (3) Opioid use disorder, moderate, dependence: Status: Acute Code(s): F11.20 - Opioid dependence, uncomplicated Assessment and Plan: * methadone increase to 70mg daily starting 03/01/2022 * additional increases to occur at [facility] Destinye Gar is a 41 y.o. male who carries a dx of MDD with psychotic features (changed to Schizoaffective, depressive type), opioid use disorder, and cocaine use disorder. He presented to [facility] [place] [facility] ED on 02/25/22 due to HI towards an unknown person, SI, and increased depression. Utox was positive for opiate, fentanyl, cocaine, and cannabis. He reports using methadone 65 mg that he obtains from the street. Per crisis eval, pt endorsed command AH, voices tell him everyday that nobody cares. Says he uses illicit substances to try to drown out the voices. No alcohol abuse. He was administered methadone 60 mg in the ED setting. Pt reports past benefit on seroquel for sx of anxiety, insomnia, will start 50 mg Q6H PRN. Will order addiction consult, as pt would like to increase his methadone dose. Will increase to 65 mg for tomorrow AM and evaluate for benefit. Reviewed EKG, no prolonged QTc. 02/28 patient remains depressed; he has chronic SI but children are strong protective factor and he denies any active thoughts, intention or plans.? He continues to have problematic auditory hallucinations.? However he says he only takes his medications when he remembers and therefore it remains very possible that current dose could be effective if taken consistently.? Patient carries a diagnosis of MDD with psychotic features.? He says he has had auditory hallucinations since he was a child; will try to rule out schizoaffective disor ajith.? Patient agrees that substance abuse, while taken to ameliorate problematic auditory hallucinations, remains an obstacle to treatment and he like a treatment program post discharge 03/01 not as depressed, still has AH but this is a little better; will increase mirtazapine for depression 03/02 patient's mood is so-so. He agrees to increased mirtazapine. He continues to wake up feeling startled throughout the night and agrees to trial of clonidine. Auditory hallucinations are little better so will leave Zyprexa at current dose. Patient denies any SI. Patient continues to want to get in to [facility] 03/03 patient reports symptoms are much better; no SI; sleeping better with clonidine; auditory hallucinations remain however they are less frequent and much quieter. Discussed diagnosis of schizoaffective disorder as patient has AH throughout his life including during times when he is not depressed. Manager Book and patient also discussed his work history; he says that he frequently gets fired from jobs; he explains how he finds it difficult to concentrate or remember things secondary to being internally preoccupied. Manager Book agrees that patient's diagnosis and subsequent symptoms are a significant barrier to to patient being successfully employed. 03/07 patient remains stable, with improved mood, no SI and significantly reduced AH. He very much wants to go to CSS program and is worried that if he does not go straight to the program from the unit, he will relapse. Team discussed and agreed that patient is highly vulnerable to relapse and are making efforts to get and into a program hector. Patient complains of chronic intermittent headache that sounds like a migraine with possible prodrome of flashing lights colors. 03/08 seems to meet criteria for migraine headache, possibly with aura which resolving with Fioricet; wants to increase Zyprexa for continued AH; otherwise mood is significantly better, pressure remains abated and no SI. Patient eager for CSS; waiting for acceptance to program, patient is not in imminent risk of harm to self or others and appropriate for discharge. 03/09 patient was triggered last night, became very anxious and had a significant increase in auditory hallucinations; he is feeling better today but was very anxious about discharge today to the program, not sure that he would remain stable given last night's event; he is asking for another couple days to make sure. Manager Book agrees. No SI 03/10 increase zyprexa to 20 mg QHS for AH, mood, anxiety and will monitor for benefit Migraine headache possibly with aura Chronic Can last for several days Moderate to severe pain intensity; causes avoidance of physical activity Photophobia during headache Seems to be some visual aura symptoms of lights and colors; not sure about other or criteria PLAN: Q15 min safety checks, CV PRN Butalb/Acetamin/Caff 50/325/40 Tablet for headache migraine Continue Clonidine 0.1mg qhs for periodic waking up, possibly due to nightmares/trauma Continue mirtazapine 15mg for continued depression(home med; increased) started on seroquel? 50 mg Q6H PRN, anxiety Methadone was increase to 65 mg Addiction consult for Methadone INCREASEd TO olanzapine 20mg qhs (home med) FOR CONTINUED AH continue fluoxetine 20mg (home med) SW pursuing CSS/substance abuse tx Monitor response to medications. Monitor for safety in the milieu. Discharge on stabilization. Patient seen. Chart reviewed. Discussed with team. Obtain collateral contact info?as needed I spent minutes with the patient and/or on the patient floor today, greater than?50% of which was spent counseling/coordinating care. Patient educated on: medication risk/benefits Reason for contiued inpatient stay Substantial Risk for: med/psych decompensation
[2022-03-10 19:49] VITALS: BP 142/67; PULSE 76
[2022-03-10] MEDS: cloNIDine HCL 0.1 MG TABLET PO (19:49)
[2022-03-10] MEDS: OLANZapine 7.5 MG TABLET 15 MG PO (19:49)
[2022-03-10] MEDS: Mirtazapine 15 MG TABLET PO (19:49)
[2022-03-11 06:00] VITALS: BP 124/64; PULSE 73; RESP 18; TEMP 36.9; O2SAT 97
[2022-03-11] MEDS: Omeprazole 20 MG CAPSULE.DR PO (06:25)
[2022-03-11] MEDS: FLUoxetine HCl 20 MG CAPSULE PO (08:44)
[2022-03-11] MEDS: Cholecalciferol (Vitamin D3) 25 MCG TABLET 50 MCG PO (08:44)
[2022-03-11] MEDS: methADONE HCl 20 MG/2 ML ORAL.CONC 70 MG PO (08:44)
[2022-03-11 19:38] VITALS: BP 143/86; PULSE 65
[2022-03-11] MEDS: cloNIDine HCL 0.1 MG TABLET PO (19:38)
[2022-03-11] MEDS: Mirtazapine 15 MG TABLET PO (19:38)
[2022-03-11] MEDS: OLANZapine 10 MG TABLET 20 MG PO (19:39)
--- NOTE | 2022-03-11 20:52 | P.PNPSI_ITS ---
Subjective Subjective Date of Service: 03/11/22 Reason For Visit: crisis Subjective Notes: Conditional Voluntary Interim History: Patient seen and discussed with team. Pt observed in milieu; staff report that he saying he is feeling good, still has a little anxiety and depression. Says the voices are bothering him sometimes and say negative things. He is taking meds but still symptomatic. Sleep is good, getting 6-8 hours. Energy is good. Feels safe.? Attending Groups: No Review of Systems Acute medical concerns: No Medical Review of Systems: unchanged Review of Systems Review of Systems CVS: No c/o chest pain, palpitations, no SOB TYPEWRITERS FUNCTIONAL TESTER: No c/o dizziness, headache GI: No c/o Nausea, Vomiting, diarrhea. Has constipation and heartburn Yes all other systems are reviewed and are negative Mental Status Exam Mental Status Exam Narrative: Pt is alert and oriented; behavior is cooperative, calm; patient is not in distress; dressed in casual attire with adequate hygiene; mood is described as anxious and depressed, and affect appropriate; eye contact appropriate; Speech is normal rate, volume and prosody and not pressured; no psychomotor agitation/retardation present; thought process is organized and goal directed; Thought content is on tx; otherwise pertinent to relevant topics and without any delusional content, paranoid ideations or grandiosity; Denies SI;? Denies HI; en dorses AH still bothersome, but much less frequent and quieter than on admission; Patients insight and judgment are fair. Level of Consciousness: Awake and Appropriate Mood Description: Flat Affect Description: Flat Diagnostics Vital Signs (24Hr): Vital Signs - 24 hr 03/11/22 06:00 03/11/22 19:38 Temperature 98.4 F Pulse Rate 73 65 Respiratory Rate 18 Blood Pressure 124/64 143/86 H Pulse Oximetry 97 BMI result Body Mass Index 29.5 Labs Results: 02/27/22 15:11 02/28/22 08:22 Medications Medications Current Medications Acetaminophen/Butalbital/Caffeine (Butalb/Acetamin/Caff 50/325/40 Tablet) 1 tab PO DAILY PRN PRN Reason: headache Last Admin: 03/08/22 14:13 Dose: 1 tab Al Hydroxide/Mg Hydroxide (Magnesium Hydrox/Alum Hydrox 30 Ml Oral.Susp) 30 ml PO Q6H PRN PRN Reason: Heartburn/Nausea Clonidine HCl (Clonidine Hcl 0.1 Mg Tablet) 0.05 mg PO BID PRN; Protocol PRN Reason: hyperarousal Clonidine HCl (Clonidine Hcl 0.1 Mg Tablet) 0.1 mg PO BEDTIME [facility]; Protocol Last Admin: 03/11/22 19:38 Dose: 0.1 mg Fluoxetine HCl (Fluoxetine Hcl 20 Mg Capsule) 20 mg PO DAILY [facility] Last Admin: 03/11/22 08:44 Dose: 20 mg Guaifenesin/Dextromethorphan (Guaifenesin Dm 600/30 1 Tab Tab.Er.12h) 2 tab PO BID PRN PRN Reason: congestion Last Admin: 03/02/22 21:17 Dose: 2 tab Hydroxyzine HCl (Hydroxyzine Hcl 50 Mg Tablet) 50 mg PO Q6H PRN PRN Reason: Anxiety Ibuprofen (Ibuprofen 600 Mg Tablet) 600 mg PO Q6H PRN PRN Reason: mild pain/headache Last Admin: 03/08/22 08:48 Dose: 600 mg Magnesium Hydroxide (Milk Of Magnesia 30 Ml Oral.Susp) 30 ml PO DAILY PRN PRN Reason: Constipation Methadone HCl (Methadone Hcl 20 Mg/2 Ml Oral.Conc) 70 mg PO DAILY [facility] Last Admin: 03/11/22 08:44 Dose: 70 mg Mirtazapine (Mirtazapine 15 Mg Tablet) 15 mg PO BEDTIME [facility] Last Admin: 03/11/22 19:38 Dose: 15 mg Nicotine (Nicotine 21 Mg Patch.Td24) 21 mg TRANSDERMA DAILY PRN PRN Reason: smoking cessation Olanzapine (Olanzapine 10 Mg Tablet) 20 mg PO BEDTIME [facility] Last Admin: 03/11/22 19:39 Dose: 20 mg Omeprazole (Omeprazole 20 Mg Capsule.Dr) 20 mg PO DAILY@0630 [facility] Last Admin: 03/11/22 06:25 Dose: 20 mg Polyethylene Glycol (Polyethylene Glycol 3350 17 Gm Powd.Pack) 17 gm PO BID [facility] Last Admin: 03/11/22 19:39 Dose: Not Given Quetiapine Fumarate (Quetiapine Fumarate 50 Mg Tablet) 50 mg PO Q6H PRN PRN Reason: agitation, anxiety Sodium Chloride (Sodium Chloride 0.65 % Nasal 44 Ml Sprbtl) 1 spray NOSTRIL-B Q1H PRN PRN Reason: dry nares Last Admin: 03/06/22 22:44 Dose: 1 spray Trazodone HCl (Trazodone Hcl 50 Mg Tablet) 50 mg PO BEDTIME PRN PRN Reason: Insomnia Vitamin D (Cholecalciferol (Vitamin D3) 25 Mcg Tablet) 50 mcg PO DAILY [facility] Last Admin: 03/11/22 08:44 Dose: 50 mcg Allergies Allergies Allergy/AdvReac Type Severity Reaction Status Date / Time No Known Allergies Allergy Verified 01/17/22 11:39 [No Known Allergies*] Assessment & Plan Assessment & Plan (1) Schizoaffective disorder, depressive type: Status: Acute Code(s): F25.1 - Schizoaffective disorder, depressive type (2) Cocaine use disorder: Status: Acute Code(s): F14.10 - Cocaine abuse, uncomplicated (3) Opioid use disorder, moderate, dependence: Status: Acute Code(s): F11.20 - Opioid dependence, uncomplicated Assessment and Plan: * methadone increase to 70mg daily starting 03/01/2022 * additional increases to occur at [facility] Destiney Gar is a 41 y.o. male who carries a dx of MDD with psychotic features (changed to Schizoaffective, depressive type), opioid use disorder, and cocaine use disorder. He presented to [facility] on 02/25/22 due to HI towards an unknown person, SI, and increased depression. Utox was positive for opiate, fentanyl, cocaine, and cannabis. He reports using methadone 65 mg that he obtains from the street. Per crisis eval, pt endorsed command AH, voices tell him everyday that nobody cares. Says he uses illicit substances to try to drown out the voices. No alcohol abuse. He was administered methadone 60 mg in the ED setting. Pt reports past benefit on seroquel for sx of anxiety, insomnia, will start 50 mg Q6H PRN. Will order addiction consult, as pt would like to increase his methadone dose. Will increase to 65 mg for tomorrow AM and evaluate for benefit. Reviewed EKG, no prolonged QTc. 02/28 patient remains depressed; he has chronic SI but children are strong protective factor and he denies any active thoughts, intention or plans.? He continues to have problematic auditory hallucinations.? However he says he only takes his medications when he remembers and therefore it remains very possible that current dose could be effective if taken consistently.? Patient carries a diagnosis of MDD with psychotic features.? He says he has had auditory hallucinations since he was a child; will try to rule out schizoaffective disorder.? Patient agrees that substance abuse, while taken to ameliorate problematic auditory hallucinations, remains an obstacle to treatment and he like a treatment program post discharge 03/01 not as depressed, still has AH but this is a little better; will increase mirtazapine for depression 03/02 patient's mood is so-so. He agrees to increased mirtazapine. He continues to wake up feeling startled throughout the night and agrees to trial of clonidine. Auditory hallucinations are little better so will leave Zyprexa at current dose. Patient denies any SI. Patient continues to want to get in to CSS 03/03 patient reports symptoms are much better; no SI; sleeping better with clonidine; auditory hallucinations remain however they are less frequent and much quieter. Discussed diagnosis of schizoaffective disorder as patient has AH throughout his life including during times when he is not depressed. Remedial Project Manager and patient also discussed his work history; he says that he frequently gets fired from jobs; he explains how he finds it difficult to concentrate or remember th ings secondary to being internally preoccupied. Remedial Project Manager agrees that patient's diagnosis and subsequent symptoms are a significant barrier to to patient being successfully employed. 03/07 patient remains stable, with improved mood, no SI and significantly reduced AH. He very much wants to go to [facility] program and is worried that if he does not go straight to the program from the unit, he will relapse. Team discussed and agreed that patient is highly vulnerable to relapse and are making efforts to g et and into a program hector. Patient complains of chronic intermittent headache that sounds like a migraine with possible prodrome of flashing lights colors. 03/08 seems to meet criteria for migraine headache, possibly with aura which resolving with Fioricet; wants to increase Zyprexa for continued AH; otherwise mood is significantly better, pressure remains abated and no SI. Patient eager for CSS; waiting for acceptance to program, patient is not in imminent risk of harm to self or others and appropriate for discharge. 03/09 patient was triggered last night, became very anxious and had a significant increase in auditory hallucinations; he is feeling better today but was very anxious about discharge today to the program, not sure that he would remain stable given last night's event; he is asking for another couple days to make sure. Remedial Project Manager agrees. No SI 03/10 increase zyprexa to 20 mg QHS for AH, mood, anxiety and will monitor for benefit 03/11 continue treatment plan- monitor for side effects Migraine headache possibly with aura Chronic Can last for several days Moderate to severe pain intensity; causes avoidance of physical activity Photophobia during headache Seems to be some visual aura symptoms of lights and colors; not sure about other or criteria PLAN: Q15 min safety checks, CV PRN Butalb/Acetamin/Caff 50/325/40 Tablet for headache migraine Continue Clonidine 0.1mg qhs for periodic waking up, possibly due to nightmares/trauma Continue mirtazapine 15mg for continued depression(home med; increased) started on seroquel? 50 mg Q6H PRN, anxiety Methadone was increase to 65 mg Addiction consult for Methadone INCREASEd TO olanzapine 20mg qhs (home med) FOR CONTINUED AH continue fluoxetine 20mg (home med) SW pursuing CSS/substance abuse tx Monitor response to medications. Monitor for safety in the milieu. Discharge on stabilization. Patient seen. Chart reviewed. Discussed with team. Obtain collateral contact info?as needed I spent minutes with the patient and/or on the patient floor today, greater than?50% of which was spent counseling/coordinating care. Reason for contiued inpatient stay Substantial Risk for: harm to self, harm to others and inability to function
[2022-03-12 06:00] VITALS: BP 131/88; PULSE 77; RESP 18; TEMP 36.7; O2SAT 97
[2022-03-12] MEDS: Omeprazole 20 MG CAPSULE.DR PO (06:10)
[2022-03-12] MEDS: FLUoxetine HCl 20 MG CAPSULE PO (09:05)
[2022-03-12] MEDS: Cholecalciferol (Vitamin D3) 25 MCG TABLET 50 MCG PO (09:05)
[2022-03-12] MEDS: methADONE HCl 20 MG/2 ML ORAL.CONC 70 MG PO (09:05)
--- NOTE | 2022-03-12 09:47 | P.PNPSI_ITS ---
Subjective Subjective Date of Service: 03/12/22 Reason For Visit: crisis Subjective Notes: Conditional Voluntary Interim History: Patient seen and discussed with team. Pt observed in milieu; staff report that he saying he is feeling anxious about discharge. He says the voices are bothering him more today. He is taking meds but still symptomatic and likely more anxious about discharge. No increase in sedation with increased zyprexa; Sleep is good, getting 6-8 hours. Energy is good. Feels safe.? 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 Has constipation and heartburn Yes all other systems are reviewed and are negative Mental Status Exam Mental Status Exam Narrative: Pt is alert and oriented; behavior is cooperative, calm; patient is not in distress; dressed in casual attire with adequate hygiene; mood is described as anxious and depressed, and affect appropriate; eye contact appropriate; Speech is normal rate, volume and prosody and not pressured; no psychomotor agitation/retardation present; thought process is organized and goal directed; Thought content is on tx and discharge; otherwise pertinent to relevant topics and without any delusional content, paranoid ideas or grandiosity; Denies SI;? Denies HI; endorses AH still bothersome, but much less frequent and quieter than on admission; Patients insight and judgment are fair. Level of Consciousness: Awake and Appropriate Mood Description: Flat Affect Description: Flat Diagnostics Vital Signs (24Hr): Vital Signs - 24 hr 03/11/22 19:38 03/12/22 06:00 Temperature 98.0 F Pulse Rate 65 77 Respiratory Rate 18 Blood Pressure 143/86 H 131/88 Pulse Oximetry 97 BMI result Body Mass Index 29.5 Labs Results: 02/27/22 15:11 02/28/22 08:22 Medications Medications Current Medications Acetaminophen/Butalbital/Caffeine (Butalb/Acetamin/Caff 50/325/40 Tablet) 1 tab PO DAILY PRN PRN Reason: headache Last Admin: 03/08/22 14:13 Dose: 1 tab Al Hydroxide/Mg Hydroxide (Magnesium Hydrox/Alum Hydrox 30 Ml Oral.Susp) 30 ml PO Q6H PRN PRN Reason: Heartburn/Nausea Clonidine HCl (Clonidine Hcl 0.1 Mg Tablet) 0.05 mg PO BID PRN; Protocol PRN Reason: hyperarousal Clonidine HCl (Clonidine Hcl 0.1 Mg Tablet) 0.1 mg PO BEDTIME [facility]; Protocol Last Admin: 03/11/22 19:38 Dose: 0.1 mg Fluoxetine HCl (Fluoxetine Hcl 20 Mg Capsule) 20 mg PO DAILY [facility] Last Admin: 03/12/22 09:05 Dose: 20 mg Guaifenesin/Dextromethorphan (Guaifenesin Dm 600/30 1 Tab Tab.Er.12h) 2 tab PO BID PRN PRN Reason: congestion Last Admin: 03/02/22 21:17 Dose: 2 tab Hydroxyzine HCl (Hydroxyzine Hcl 50 Mg Tablet) 50 mg PO Q6H PRN PRN Reason: Anxiety Ibuprofen (Ibuprofen 600 Mg Tablet) 600 mg PO Q6H PRN PRN Reason: mild pain/headache Last Admin: 03/08/22 08:48 Dose: 600 mg Magnesium Hydroxide (Milk Of Magnesia 30 Ml Oral.Susp) 30 ml PO DAILY PRN PRN Reason: Constipation Methadone HCl (Methadone Hcl 20 Mg/2 Ml Oral.Conc) 70 mg PO DAILY [facility] Last Admin: 03/12/22 09:05 Dose: 70 mg Mirtazapine (Mirtazapine 15 Mg Tablet) 15 mg PO BEDTIME [facility] Last Admin: 03/11/22 19:38 Dose: 15 mg Nicotine (Nicotine 21 Mg Patch.Td24) 21 mg TRANSDERMA DAILY PRN PRN Reason: smoking cessation Olanzapine (Olanzapine 10 Mg Tablet) 20 mg PO BEDTIME [facility] Last Admin: 03/11/22 19:39 Dose: 20 mg Omeprazole (Omeprazole 20 Mg Capsule.Dr) 20 mg PO DAILY@0630 [facility] Last Admin: 03/12/22 06:10 Dose: 20 mg Polyethylene Glycol (Polyethylene Glycol 3350 17 Gm Powd.Pack) 17 gm PO BID [facility] Last Admin: 03/12/22 09:10 Dose: Not Given Quetiapine Fumarate (Quetiapine Fumarate 50 Mg Tablet) 50 mg PO Q6H PRN PRN Reason: agitation, anxiety Sodium Chloride (Sodium Chloride 0.65 % Nasal 44 Ml Sprbtl) 1 spray NOSTRIL-B Q1H PRN PRN Reason: dry nares Last Admin: 03/06/22 22:44 Dose: 1 spray Trazodone HCl (Trazodone Hcl 50 Mg Tablet) 50 mg PO BEDTIME PRN PRN Reason: Insomnia Vitamin D (Cholecalciferol (Vitamin D3) 25 Mcg Tablet) 50 mcg PO DAILY [facility] Last Admin: 03/12/22 09:05 Dose: 50 mcg Allergies Allergies Allergy/AdvReac Type Severity Reaction Status Date / Time No Known Allergies Allergy Verified 01/17/22 11:39 [No Known Allergies*] Assessment & Plan Assessment & Plan (1) Schizoaffective disorder, depressive type: Status: Acute Code(s): F25.1 - Schizoaffective disorder, depressive type (2) Cocaine use disorder: Status: Acute Code(s): F14.10 - Cocaine abuse, uncomplicated (3) Opioid use disorder, moderate, dependence: Status: Acute Code(s): F11.20 - Opioid dependence, uncomplicated Assessment and Plan: * methadone increase to 70mg daily starting 03/01/2022 * additional increases to occur at [facility] Destiney Gar is a 41 y.o. male who carries a dx of MDD with psychotic features (changed to Schizoaffective, depressive type), opioid use disorder, and cocaine use disorder. He presented to [facility] ED on 02/25/22 due to HI towards an unknown person, SI, and increased depression. Utox was positive for opiate, fentanyl, cocaine, and cannabis. He reports using methadone 65 mg that he obtains from the street. Per crisis eval, pt endorsed command AH, voices tell him everyday that nobody cares. Says he uses illicit substances to try to drown out the voices. No alcohol abuse. He was administered methadone 60 mg in the ED setting. Pt reports past benefit on seroquel for sx of anxiety, insomnia, will start 50 mg Q6H PRN. Will order addiction consult, as pt would like to increase his methadone dose. Will increase to 65 mg for tomorrow AM and evaluate for benefit. Reviewed EKG, no prolonged QTc. 02/28 patient remains depressed; he has chronic SI but children are strong protective factor and he denies any active thoughts, intention or plans.? He continues to have problematic auditory hallucinations.? However he says he only takes his medications when he remembers and therefore it remains very possible that current dose could be effective if taken consistently.? Patient carries a diagnosis of MDD with psychotic features.? He says he has had auditory hallucinations since he was a child; will try to rule out schizoaffective disorder.? Patient agrees that substance abuse, while taken to ameliorate problematic auditory hallucinations, remains an obstacle to treatment and he like a treatment program post discharge 03/01 not as depressed, still has AH but this is a little better; will increase mirtazapine for depression 03/02 patient's mood is so-so. He agrees to increased mirtazapine. He c ontinues to wake up feeling startled throughout the night and agrees to trial of clonidine. Auditory hallucinations are little better so will leave Zyprexa at current dose. Patient denies any SI. Patient continues to want to get in to [facility] 03/03 patient reports symptoms are much better; no SI; sleeping better with clonidine; auditory hallucinations remain however they are less frequent and much quieter. Discussed diagnosis of schizoaffective disorder as patient has AH throughout his life including during times when he is not depressed. 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 Genetic Engineer agrees that patient's diagnosis and subsequent symptoms are a significant barrier to to patient being successfully employed. 03/07 patient remains stable, with improved mood, no SI and significantly reduced AH. He very much wants to go to CSS program and is worried that if he does not go straight to the program from the unit, he will relapse. Team discussed and agreed that patient is highly vulnerable to relapse and are making efforts to get and into a program hector. Patient complains of chronic intermittent headache that sounds like a migraine with possible prodrome of flashing lights colors. 03/08 seems to meet criteria for migraine headache, possibly with aura which resolving with Fioricet; wants to increase Zyprexa for continued AH; otherwise mood is significantly better, pressure remains abated and no SI. Patient eager for CSS; waiting for acceptance to program, patient is not in imminent risk of harm to self or others and appropriate for discharge. 03/09 patient was triggered last night, became very anxious and had a significant increase in auditory hallucinations; he is feeling better today but was very anx ious about discharge today to the program, not sure that he would remain stable given last night's event; he is asking for another couple days to make sure. Genetic Engineer agrees. No SI 03/10 increase zyprexa to 20 mg QHS for AH, mood, anxiety and will monitor for benefit 03/11 continue treatment plan- monitor for side effects 03/12 continue treatment plan Migraine headache possibly with aura Chronic Can last for several days Moderate to severe pain intensity; causes avoidance of physical activity Photophobia during headache Seems to be some visual aura symptoms of lights and colors; not sure about other or criteria PLAN: Q15 min safety checks, CV PRN Butalb/Acetamin/Caff 50/325/40 Tablet for headache migraine Continue Clonidine 0.1mg qhs for periodic waking up, possibly due to nightmares/trauma Continue mirtazapine 15mg for continued depression(home med; increased) started on seroquel? 50 mg Q6H PRN, anxiety Methadone was increase to 65 mg Addiction consult for Methadone INCREASEd TO olanzapine 20mg qhs (home med) FOR CONTINUED AH continue fluoxetine 20mg (home med) SW pursuing CSS/substance abuse tx Monitor response to medications. Monitor for safety in the milieu. Discharge on stabilization. Patient seen. Chart reviewed. Discussed with team. Obtain collateral contact info?as needed I spent minutes with the patient and/or on the patient floor today, greater than?50% of which was spent counseling/coordinating care. Reason for contiued inpatient stay Substantial Risk for: harm to self, inability to function and rapid decompensation
[2022-03-12 18:00] VITALS: BP 124/74; PULSE 80
[2022-03-12] MEDS: OLANZapine 10 MG TABLET 20 MG PO (19:50)
[2022-03-12] MEDS: cloNIDine HCL 0.1 MG TABLET PO (19:50)
[2022-03-12] MEDS: Mirtazapine 15 MG TABLET PO (19:51)
[2022-03-13] MEDS: Omeprazole 20 MG CAPSULE.DR PO (05:54)
[2022-03-13 06:00] VITALS: BP 126/66; PULSE 76; RESP 18; TEMP 36.7; O2SAT 97
[2022-03-13] MEDS: methADONE HCl 20 MG/2 ML ORAL.CONC 70 MG PO (08:44)
[2022-03-13] MEDS: Cholecalciferol (Vitamin D3) 25 MCG TABLET 50 MCG PO (08:45)
[2022-03-13] MEDS: FLUoxetine HCl 20 MG CAPSULE PO (08:45)
--- NOTE | 2022-03-13 16:41 | HO.PSYCHPN ---
Subjective Subjective Date of Service: 03/13/22 Reason For Visit: crisis Interim History: Patient reports that he is looking for to going to CSS/substance abuse program tomorrow. He says that his mood Remains better and is okay he denies any SI or HI. He says he has only a little bit of auditory hallucinations which are not overly bothersome. Patient denies any other problems and has no other requests. He expresses thanks for treatment received while on the unit. Mental Status Exam Mental Status Exam Narrative: Pt is alert and oriented; behavior is cooperative, calm; patient is not in distress; dressed in casual attire with adequate hygiene; mood is described as ok and affect congruent; eye contact appropriate; Speech is normal rate, volume and prosody and not pressured; no psychomotor agitation/retardation present; thought process is organized and goal directed; Thought content is on tx; otherwise pertinent to relevant topics and without any delusional content, paranoid ideations or grandiosity; Denies SI; Denies HI; endorses AH still but says only a little bit. Patients insight and judgment are fair. Diagnostics Vital Signs (24Hr): Vital Signs - 24 hr 03/12/22 18:00 03/13/22 06:00 Temperature 98.0 F Pulse Rate 80 76 Respiratory Rate 18 Blood Pressure 124/74 126/66 Pulse Oximetry 97 BMI result Body Mass Index 29.5 Labs Results: 02/27/22 15:11 02/28/22 08:22 Medications Medications Current Medications Acetaminophen/Butalbital/Caffeine (Butalb/Acetamin/Caff 50/325/40 Tablet) 1 tab PO DAILY PRN PRN Reason: headache Last Admin: 03/08/22 14:13 Dose: 1 tab Al Hydroxide/Mg Hydroxide (Magnesium Hydrox/Alum Hydrox 30 Ml Oral.Susp) 30 ml PO Q6H PRN PRN Reason: Heartburn/Nausea Clonidine HCl (Clonidine Hcl 0.1 Mg Tablet) 0.05 mg PO BID PRN; Protocol PRN Reason: hyperarousal Clonidine HCl (Clonidine Hcl 0.1 Mg Tablet) 0.1 mg PO BEDTIME [facility]; Protocol Last Admin: 03/12/22 19:50 Dose: 0.1 mg Fluoxetine HCl (Fluoxetine Hcl 20 Mg Capsule) 20 mg PO DAILY [facility] Last Admin: 03/13/22 08:45 Dose: 20 mg Guaifenesin/Dextromethorphan (Guaifenesin Dm 600/30 1 Tab Tab.Er.12h) 2 tab PO BID PRN PRN Reason: congestion Last Admin: 03/02/22 21:17 Dose: 2 tab Hydroxyzine HCl (Hydroxyzine Hcl 50 Mg Tablet) 50 mg PO Q6H PRN PRN Reason: Anxiety Ibuprofen (Ibuprofen 600 Mg Tablet) 600 mg PO Q6H PRN PRN Reason: mild pain/headache Last Admin: 03/08/22 08:48 Dose: 600 mg Magnesium Hydroxide (Milk Of Magnesia 30 Ml Oral.Susp) 30 ml PO DAILY PRN PRN Reason: Constipation Methadone HCl (Methadone Hcl 20 Mg/2 Ml Oral.Conc) 70 mg PO DAILY [facility] Last Admin: 03/13/22 08:44 Dose: 70 mg Mirtazapine (Mirtazapine 15 Mg Tablet) 15 mg PO BEDTIME [facility] Last Admin: 03/12/22 19:51 Dose: 15 mg Nicotine (Nicotine 21 Mg Patch.Td24) 21 mg TRANSDERMA DAILY PRN PRN Reason: smoking cessation Olanzapine (Olanzapine 10 Mg Tablet) 20 mg PO BEDTIME [facility] Last Admin: 03/12/22 19:50 Dose: 20 mg Omeprazole (Omeprazole 20 Mg Capsule.Dr) 20 mg PO DAILY@0630 [facility] Last Admin: 03/13/22 05:54 Dose: 20 mg Polyethylene Glycol (Polyethylene Glycol 3350 17 Gm Powd.Pack) 17 gm PO BID [facility] Last Admin: 03/13/22 08:52 Dose: Not Given Quetiapine Fumarate (Quetiapine Fumarate 50 Mg Tablet) 50 mg PO Q6H PRN PRN Reason: agitation, anxiety Sodium Chloride (Sodium Chloride 0.65 % Nasal 44 Ml Sprbtl) 1 spray NOSTRIL-B Q1H PRN PRN Reason: dry nares Last Admin: 03/06/22 22:44 Dose: 1 spray Trazodone HCl (Trazodone Hcl 50 Mg Tablet) 50 mg PO BEDTIME PRN PRN Reason: Insomnia Vitamin D (Cholecalciferol (Vitamin D3) 25 Mcg Tablet) 50 mcg PO DAILY [facility] Last Admin: 03/13/22 08:45 Dose: 50 mcg Allergies Allergies Allergy/AdvReac Type Severity Reaction Status Date / Time No Known Allergies Allergy Verified 01/17/22 11:39 [No Known Allergies*] Assessment & Plan Assessment & Plan (1) Schizoaffective disorder, depressive type: Status: Acute Code(s): F25.1 - Schizoaffective disorder, depressive type (2) Cocaine use disorder: Status: Acute Code(s): F14.10 - Cocaine abuse, uncomplicated (3) Opioid use disorder, moderate, dependence: Status: Acute Code(s): F11.20 - Opioid dependence, uncomplicated Assessment and Plan: methadone increase to 70mg daily starting 03/01/2022 additional increases to occur at [facility] Destiney Gar is a 41 y.o. male who carries a dx of MDD with psychotic features (changed to Schizoaffective, depressive type), opioid use disorder, and cocaine use disorder. He presented to [facility] ED on 02/25/22 due to HI towards an unknown person, SI, and increased depression. Utox was positive for opiate, fentanyl, cocaine, and cannabis. He reports using methadone 65 mg that he obtains from the street. Per crisis eval, pt endorsed command AH, voices tell him everyday that nobody cares. Says he uses illicit substances to try to drown out the voices. No alcohol abuse. He was administered methadone 60 mg in the ED setting. Pt reports past benefit on seroquel for sx of anxiety, insomnia, will start 50 mg Q6H PRN. Will order addiction consult, as pt would like to increase his methadone dose. Will increase to 65 mg for tomorrow AM and evaluate for benefit. Reviewed EKG, no prolonged QTc. 02/28 patient remains depressed; he has chronic SI but children are strong protective factor and he denies any active thoughts, intention or plans.? He continues to have problematic auditory hallucinations.? However he says he only takes his medications when he remembers and therefore it remains very possible that current dose could be effective if taken consistently.? Patient carries a diagnosis of MDD with psychotic features.? He says he has had auditory hallucinations since he was a child; will try to rule out schizoaffective disorder.? Patient agrees that substance abuse, while taken to ameliorate problematic auditory hallucinations, remains an obstacle to treatment and he like a treatment program post discharge 03/01 not as depressed, still has AH but this is a little better; will increase mirtazapine for depression 03/02 patient's mood is so-so. He agrees to increased mirtazapine. He continues to wake up feeling startled throughout the night and agrees to trial of clonidine. Auditory hallucinations are little better so will leave Zyprexa at current dose. Patient denies any SI. Patient continues to want to get in to [facility] 03/03 patient reports symptoms are much better; no SI; sleeping better with clonidine; auditory hallucinations remain however they are less frequent and much quieter. Discussed diagnosis of schizoaffective disorder as patient has AH throughout his life including during times when he is not depressed. 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 Stained Glass Glazier Helper agrees that patient's diagnosis and subsequent symptoms are a significant barrier to to patient being successfully employed. 03/07 patient remains stable, with improved mood, no SI and significantly reduced AH. He very much wants to go to CSS program and is worried that if he does not go straight to the program from the unit, he will relapse. Team discussed and agreed that patient is highly vulnerable to relapse and are making efforts to get and into a program hector. Patient complains of chronic intermittent headache that sounds like a migraine with possible prodrome of flashing lights colors. 03/08 seems to meet criteria for migraine headache, possibly with aura which resolving with Fioricet; wants to increase Zyprexa for continued AH; otherwise mood is significantly better, pressure remains abated and no SI. Patient eager for CSS; waiting for acceptance to program, patient is not in imminent risk of harm to self or others and appropriate for discharge. 03/09 patient was triggered last night, became very anxious and had a significant increase in auditory hallucinations; he is feeling better today but was very anxious about discharge today to the program, not sure that he would remain stable given last night's event; he is asking for another couple days to make sure. Stained Glass Glazier Helper agrees. No SI 03/10 increase zyprexa to 20 mg QHS for AH, mood, anxiety and will monitor for benefit 03/11 continue treatment plan- monitor for side effects 03/12 continue treatment plan 03/13 Patient remains stable; has auditory hallucinations but says they are only a little bit and not bothersome; no SI, depression remains better. He says he is looking forward to discharging tomorrow to substance abuse program. Stained Glass Glazier Helper asked to use anxious about and he said no. Patient discharging to a safe, structured environment for further treatment. He is not in imminent risk for harm to self or others and his request for discharge honored. Migraine headache possibly with aura Chronic Can last for several days Moderate to severe pain intensity; causes avoidance of physical activity Photophobia during headache Seems to be some visual aura symptoms of lights and colors; not sure about other or criteria PLAN: Q15 min safety checks, CV PRN Butalb/Acetamin/Caff 50/325/40 Tablet for headache migraine Continue Clonidine 0.1mg qhs for periodic waking up, possibly due to nightmares/trauma Continue mirtazapine 15mg for continued depression(home med; increased) started on seroquel? 50 mg Q6H PRN, anxiety Methadone was increase to 65 mg Addiction consult for Methadone INCREASEd TO olanzapine 20mg qhs (home med) FOR CONTINUED AH continue fluoxetine 20mg (home med) SW pursuing CSS/substance abuse tx Monitor response to medications. Monitor for safety in the milieu. Discharge on stabilization. Patient seen. Chart reviewed. Discussed with team. Obtain collateral contact info?as needed I spent minutes with the patient and/or on the patient floor today, greater than?50% of which was spent counseling/coordinating care. Patient educated on: diagnosis, substance abuse and therapeutic strategies Informed Consent: understands Reason for contiued inpatient stay Substantial Risk for: stable for discharge
[2022-03-13 19:45] VITALS: BP 135/91; PULSE 70; TEMP 36.1; O2SAT 96
[2022-03-13] MEDS: Mirtazapine 15 MG TABLET PO (19:58)
[2022-03-13] MEDS: OLANZapine 10 MG TABLET 20 MG PO (19:58)
[2022-03-13] MEDS: cloNIDine HCL 0.1 MG TABLET PO (19:59)
[2022-03-13] MEDS: Magnesium Hydrox/Alum Hydrox 30 ML ORAL.SUSP PO (23:35)
[2022-03-14 06:31] VITALS: BP 128/80; PULSE 74; RESP 18; TEMP 36.4; O2SAT 98
[2022-03-14 07:45] VITALS: BP 128/80; PULSE 74; RESP 16; TEMP 36.4; O2SAT 98
[2022-03-14] MEDS: methADONE HCl 20 MG/2 ML ORAL.CONC 70 MG PO (08:13)
[2022-03-14] MEDS: Omeprazole 20 MG CAPSULE.DR PO (08:14)
[2022-03-14] MEDS: Cholecalciferol (Vitamin D3) 25 MCG TABLET 50 MCG PO (08:14)
[2022-03-14] MEDS: FLUoxetine HCl 20 MG CAPSULE PO (08:30)
--- NOTE | 2022-03-14 10:54 | PC.NURSE ---
Pt. d/c today at 1028. He ambulated off the unit independently and safely-he denied SI/HI. Pt.'s VS were stable upon d/c A&Ox4. Pt. stated that he feels safe to d/c and is ready. Pt. was given all of his belongings and paperwork signed. Appointment made with [facility] for PCP and paperwork faxed. Methadone clinic called and notified of d/c. Pt. given a hard copy of last dose of methadone in sealed envelope. Pt. educated on medication and appointment.
== END 2022-03-14 14:57 | disposition home or self-care (01) | DRG 750 ==
LOC: HO.ED 02-27 16:49 → HO.PM5 02-27 16:56
PROVIDERS: Clinical Nurse Specialist Psychiatric/Mental Health, Adult; Physician Assistant Medical; Admitting Provider Psychiatry & Neurology Psychiatry; Emergency Provider Emergency Medicine Emergency Medical Services; Visit Provider Psychiatry & Neurology Psychiatry
DX: F25.1 Schizoaffective disorder, depressive type (principal); R45.850 Homicidal ideations; R45.851 Suicidal ideations; F14.10 Cocaine abuse, uncomplicated; F11.20 Opioid dependence, uncomplicated; F17.210 Nicotine dependence, cigarettes, uncomplicated; Z20.822 Contact with and (suspected) exposure to COVID-19; Z59.02 Unsheltered homelessness; Z71.6 Tobacco abuse counseling; Z79.899 Other long term (current) drug therapy
CPT/HCPCS: 36415; 80053; 80061; 80307; 81001; 81003; 85025; 87635; 93005; 99285